=== PATIENT | female | born 1995 | race Caucasian/White ===

== ENCOUNTER → 2016-07-21 | Outpatient (CLI) | payer BC, OTHER | END | disposition home or self-care (01) | LOC: MW.CHOBGYN 13:32 | PROVIDERS: ATTEND Obstetrics & Gynecology | DX: Z34.90 Encounter for supervision of normal pregnancy, unspecified, unspecified trimester (principal); N92.6 Irregular menstruation, unspecified | CPT/HCPCS: 81003; 81025; 87480; 87491; 87510; 87591; 87660 ==

== ENCOUNTER → 2016-08-18 | Outpatient (CLI) | payer BC, OTHER | LOC: MW.CHOBGYN 11:13 | PROVIDERS: ATTEND Obstetrics & Gynecology | DX: Z34.90 Encounter for supervision of normal pregnancy, unspecified, unspecified trimester (principal) | CPT/HCPCS: 36415; 81003; 85027; 86592; 86762; 86803; 86850; 86900; 86901; 87086; 87340 ==

== ENCOUNTER 2017-01-28 05:11 | Inpatient (IN) | payer OTHER ==
[~2017-01-28 05:11] MED LIST: Citric Acid/Sodium Citrate Solution 30 ML Cup PO SCH; Oxytocin/0.9 % Sodium Chloride 30 UNIT/500 ML BAG IV SCH; Sodium Chloride 0.9% 10 ML Syringe FLUSH PRN; Sodium Chloride 0.9% 2.5 ML Syringe FLUSH PRN
[2017-01-28] MEDS: Lactated Ringers 1,000 ML IV SCH ×4 (05:50→18:13)
[2017-01-28] MEDS ORDERED: Ondansetron 4 MG/2 ML SDV ONE (06:59)
[2017-01-28] MEDS ORDERED: Oxytocin 10 Units/1 ML SDV ONE (06:59)
[2017-01-28] MEDS ORDERED: Morphine PF 10 MG/10 ML SDV ONE (06:59)
[2017-01-28] MEDS ORDERED: Phenylephrine 1% 10 MG/ML SDV ONE (06:59)
--- NOTE | 2017-01-28 07:26 | PCM.PREANE ---
Preanesthetic Assessment - Procedure Proposed Procedure: - Anesthesia/Transfusion/Family Hx Anesthesia History: Prior Anesthesia Without Reaction Family History of Anesthesia Reaction: No Transfusion History: No Prior Transfusion(s) Additional History: E in 2016 under spinal. - Review of Systems General: Other (, term) Pulmonary: Other (recent mild cold with cough...not today) Cardiovascular: No Symptoms Gastrointestinal: Other (GERD of , mild compared to priors) Neurological: No Symptoms Other: Reports: None - Physical Assessment NPO Status Date: 01/27/17 NPO Status Time: 23:00 Height: 5 ft Weight: 198 lb ASA Class: 2 Mental Status: Alert & Oriented x3 Airway Class: Mallampati = 2 Dentition: Reports: Normal Dentition Thyro-Mental Finger Breadths: 3 Mouth Opening Finger Breadths: 3 ROM/Head Extension: Full Lungs: Clear to Auscultation, Normal Respiratory Effort Cardiovascular: Regular Rate, Regular Rhythm, No Murmurs - Lab Values: Laboratory Last Values WBC 9.10 K/uL (4.0-11.0) 01/27/17 09:44 RBC 3.97 M/uL (4.30-5.90) L 01/27/17 09:44 Hgb 11.1 g/dL (12.0-16.0) L 01/27/17 09:44 Hct 33.4 % (36.0-46.0) L 01/27/17 09:44 MCV 84.1 fL (80.0-98.0) 01/27/17 09:44 MCH 28.0 pg (27.0-32.0) 01/27/17 09:44 MCHC 33.2 g/dL (31.0-37.0) 01/27/17 09:44 RDW Std Deviation 42.7 fl (28.0-62.0) 01/27/17 09:44 RDW Coeff of Fozia 14 % (11.0-15.0) 01/27/17 09:44 Plt Count 165 K/uL (150-400) 01/27/17 09:44 MPV 11.50 fL (7.40-12.00) 01/27/17 09:44 Neut % (Auto) 65.3 % (48.0-80.0) 01/27/17 09:44 Lymph % (Auto) 27.1 % (16.0-40.0) 01/27/17 09:44 [place] % (Auto) 6.4 % (0.0-15.0) 01/27/17 09:44 Eos % (Auto) 1.1 % (0.0-7.0) 01/27/17 09:44 Baso % (Auto) 0.1 % (0.0-1.5) 01/27/17 09:44 Neut # (Auto) 5.9 K/uL (1.4-5.7) H 01/27/17 09:44 Lymph # (Auto) 2.5 K/uL (0.6-2.4) H 01/27/17 09:44 [place] # (Auto) 0.6 K/uL (0.0-0.8) 01/27/17 09:44 Eos # (Auto) 0.1 K/uL (0.0-0.7) 01/27/17 09:44 Baso # (Auto) 0.0 K/uL (0.0-0.1) 01/27/17 09:44 Nucleated RBC % 0.0 /100WBC 01/27/17 09:44 Nucleated RBCs # 0 K/uL 01/27/17 09:44 Urine Color YELLOW 01/27/17 09:44 Urine Appearance CLEAR 01/27/17 09:44 Urine pH 6.5 (5.0-8.0) 01/27/17 09:44 Ur Specific [place] 1.020 (1.001-1.035) 01/27/17 09:44 Urine Protein NEGATIVE mg/dL (NEGATIVE) 01/27/17 09:44 Urine Glucose (UA) NEGATIVE mg/dL (NEGATIVE) 01/27/17 09:44 Urine Ketones NEGATIVE mg/dL (NEGATIVE) 01/27/17 09:44 Urine Occult Blood NEGATIVE (NEGATIVE) 01/27/17 09:44 Urine Nitrite NEGATIVE (NEGATIVE) 01/27/17 09:44 Urine Bilirubin NEGATIVE (NEGATIVE) 01/27/17 09:44 Urine Urobilinogen 0.2 EU/dL (<2.0) 01/27/17 09:44 Ur Leukocyte Esterase NEGATIVE (NEGATIVE) 01/27/17 09:44 Blood Type O POSITIVE 01/27/17 09:44 Antibody Screen NEGATIVE 01/27/17 09:44 - Allergies Allergies/Adverse Reactions: Allergies Allergy/AdvReac Type Severity Reaction Status Date / Time No Known Allergies Allergy Verified 01/28/17 06:02 - Blood Blood Available: Yes - Anesthesia Plan Pre-Op Medication Ordered: Antacids - Acknowledgements Anesthesia Type Planned: Spinal Pt an Appropriate Candidate for the Planned Anesthesia: Yes Alternatives and Risks of Anesthesia Discussed w Pt/Guardian: Yes Pt/Guardian Understands and Agrees with Anesthesia Plan: Yes PreAnesthesia Questionnaire HEENT History: Reports: None Cardiovascular History: Reports: None Respiratory History: Reports: None Gastrointestinal History: Reports: None Genitourinary History: Reports: None 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: Musculoskeletal History: Reports: None Neurological History: Reports: None Psychiatric History: Reports: None Endocrine/Metabolic History: Reports: Obesity/BMI 30+ Hematologic History: Reports: None Immunologic History: Reports: None Oncologic (Cancer) History: Reports: None Dermatologic History: Reports: None - Past Surgical History Female Surgical History: Reports: Section Endocrine Surgical History: Reports: None Musculoskeletal Surgical History: Reports: Other (See Below) Other Musculoskeletal Surgeries/Procedures:: cyst removed from wrist - SUBSTANCE USE Smoking Status *Q: Former Smoker Second Hand Smoke Exposure: No Recreational Drug Use History: No - HOME MEDS Home Medications: Home Meds PNV95/Ferrous Fumarate/FA [ Multivitamins] 1 tab PO DAILY 08/21/14 [ History] - CURRENT (IN HOUSE) MEDS Current Meds: Current Medications Citric Acid/Sodium Citrate (Bicitra Solution) 30 ml PO .ONCE MICHELLE Lactated Ringer's (Ringers, Lactated) 1,000 mls @ 500 mls/hr IV .BOLUS MICHELLE Last Admin: 01/28/17 06:30 Dose: 500 mls/hr Oxytocin/Sodium Chloride (Oxytocin 30 Unit/500 Ml-Ns) 30 unit in 500 mls @ 250 mls/hr IV TITRATE MICHELLE Sodium Chloride (Saline Flush) 10 ml FLUSH ASDIRECTED PRN PRN Reason: Keep Vein Open Sodium Chloride (Saline Flush) 2.5 ml FLUSH ASDIRECTED PRN PRN Reason: Keep Vein Open Discontinued Medications Morphine Sulfate (Duramorph Pf) Confirm Administered Dose 10 mg .ROUTE .STK-MED ONE Stop: 01/28/17 07:00 Ondansetron HCl (Zofran) Confirm Administered Dose 4 mg .ROUTE .STK-MED ONE Stop: 01/28/17 07:00 Oxytocin (Pitocin) Confirm Administered Dose 20 unit .ROUTE .STK-MED ONE Stop: 01/28/17 07:00 Phenylephrine HCl (Rodriguez-Synephrine) Confirm Administered Dose 10 mg .ROUTE .STK- MED ONE Stop: 01/28/17 07:00
[2017-01-28] MEDS ORDERED: ceFAZolin 2 GM in Premix Bag 1 BAG IV ONE (07:39)
--- NOTE | 2017-01-28 08:02 | PCM.LDHP ---
L&D History of Present Illness - General Date of Service: 01/28/17 Admit Problem/Dx: Patient Status Order with Admit Dx/Problem 01/27/17 13:41 Patient Status [ADT] Routine Admission Diagnosis/Problem Admission Diagnosis/Problem Source of Information: Patient History Limitations: Reports: No Limitations - History of Present Illness Improves with: Reports: None Worsens with: Reports: None Associated Symptoms: Reports: N - Related Data Allergies/Adverse Reactions: Allergies Allergy/AdvReac Type Severity Reaction Status Date / Time No Known Allergies Allergy Verified 01/28/17 06:02 Home Medications: Home Meds PNV95/Ferrous Fumarate/FA [ Multivitamins] 1 tab PO DAILY 08/21/14 [ History] Past Medical History HEENT History: Reports: None Cardiovascular History: Reports: None Respiratory History: Reports: None Gastrointestinal History: Reports: None Genitourinary History: Reports: None 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: Musculoskeletal History: Reports: None Neurological History: Reports: None Psychiatric History: Reports: None Endocrine/Metabolic History: Reports: Obesity/BMI 30+ Hematologic History: Reports: None Immunologic History: Reports: None Oncologic (Cancer) History: Reports: None Dermatologic History: Reports: None - Past Surgical History Female Surgical History: Reports: Section Endocrine Surgical History: Reports: None Musculoskeletal Surgical History: Reports: Other (See Below) Other Musculoskeletal Surgeries/Procedures:: cyst removed from wrist Social & Family History - Family History Cardiac: Reports: [place] OBGYN: Reports: Endocrine/Metabolic: Reports: Diabetes, Type I - Tobacco Use Smoking Status *Q: Former Smoker Years of Tobacco use: 2 Used Tobacco, but Quit: Yes Month Tobacco Last Used: unknown Second Hand Smoke Exposure: No - Caffeine Use Caffeine Use: Reports: None - Recreational Drug Use Recreational Drug Use: No Drug Use in Last 12 Months: No H&P Review of Systems - Review of Systems: Review Of Systems: See Below General: Reports: No Symptoms HEENT: Reports: No Symptoms Pulmonary: Reports: No Symptoms Cardiovascular: Reports: No Symptoms Gastrointestinal: Reports: No Symptoms Genitourinary: Reports: No Symptoms Musculoskeletal: Reports: No Symptoms Skin: Reports: No Symptoms Psychiatric: Reports: No Symptoms Neurological: Reports: No Symptoms Hematologic/Lymphatic: Reports: No Symptoms Immunologic: Reports: No Symptoms L&D Exam - Exam Exam: See Below - Vital Signs Weight: 89.811 kg - OB Specific Fundal Height In cm: 39 Contraction Intensity: Mild Movement: Active Heart Tones: Present Presentation: Vertex - Jessica Score Jessica Score Cervix Position: Posterior Jessica Score Consistency: Medium Jessica Score Effacement: 31-50% Jessica Score Dilation: Closed Jessica Score 's Station: -3 Jessica Score Total: 2 - Exam General: Alert, Oriented HEENT: PERRLA, Conjunctiva Clear, EACs Clear, EOMI, Hearing Intact, Mucosa Moist & [place], Nares Patent, Normal Nasal Septum, Posterior Pharynx Clear, TMs Clear Neck: Supple, Trachea Midline Lungs: Clear to Auscultation, Normal Respiratory Effort Cardiovascular: Regular Rate, Regular Rhythm GI/Abdominal Exam: Normal Bowel Sounds, Soft, Non-Tender, No Organomegaly, No Distention, No Abnormal Bruit, No Mass, Pelvis Stable Rectal Exam: Normal Exam, Normal Rectal Tone Genitourinary: Normal external exam, Normal bimanual exam, Normal speculum exam Back Exam: Normal Inspection, Full Range of Motion Extremities: Normal Inspection, Normal Range of Motion, Non-Tender, No Pedal Edema, Normal Capillary Refill Skin: Warm, Dry, Intact Neurological: Cranial Nerves Intact, Reflexes Equal Bilateral Psychiatric: Alert, Normal Affect, Normal Mood - Patient Data Lab Results Last 24 hrs: Laboratory Results - last 24 hr 01/27/17 01/27/17 01/27/17 Range/Units 09:44 09:44 09:44 WBC 9.10 (4.0-11.0) K/uL RBC 3.97 L (4.30-5.90) M/uL Hgb 11.1 L (12.0-16.0) g/dL Hct 33.4 L (36.0-46.0) % MCV 84.1 (80.0-98.0) fL MCH 28.0 (27.0-32.0) pg MCHC 33.2 (31.0-37.0) g/dL RDW Std Deviation 42.7 (28.0-62.0) fl RDW Coeff of Fozia 14 (11.0-15.0) % Plt Count 165 (150-400) K/uL MPV 11.50 (7.40-12.00) fL Neut % (Auto) 65.3 (48.0-80.0) % Lymph % (Auto) 27.1 (16.0-40.0) % [place] % (Auto) 6.4 (0.0-15.0) % Eos % (Auto) 1.1 (0.0-7.0) % Baso % (Auto) 0.1 (0.0-1.5) % Neut # (Auto) 5.9 H (1.4-5.7) K/uL Lymph # (Auto) 2.5 H (0.6-2.4) K/uL [place] # (Auto) 0.6 (0.0-0.8) K/uL Eos # (Auto) 0.1 (0.0-0.7) K/uL Baso # (Auto) 0.0 (0.0-0.1) K/uL Nucleated RBC % 0.0 /100WBC Nucleated RBCs # 0 K/uL Urine Color YELLOW Urine Appearance CLEAR Urine pH 6.5 (5.0-8.0) Ur Specific [place] 1.020 (1.001-1.035) Urine Protein NEGATIVE (NEGATIVE) mg/dL Urine Glucose (UA) NEGATIVE (NEGATIVE) mg/dL Urine Ketones NEGATIVE (NEGATIVE) mg/dL Urine Occult Blood NEGATIVE (NEGATIVE) Urine Nitrite NEGATIVE (NEGATIVE) Urine Bilirubin NEGATIVE (NEGATIVE) Urine Urobilinogen 0.2 (<2.0) EU/dL Ur Leukocyte Esterase NEGATIVE (NEGATIVE) Blood Type O POSITIVE Antibody Screen NEGATIVE Result Diagrams: 01/27/17 09:44 Problem List Initiated/Reviewed/Updated: Yes Orders Last 24hrs: Active Orders 24 hr Category Date Time Status Patient Status [ADT] Routine ADT 01/27/17 13:41 Active Non Stress Test [RC] PER UNIT ROUTINE Care 01/27/17 13:41 Active Procedure Site Prep Instruct [RC] ASDIRECTED Care 01/27/17 13:41 Active Up ad Katherine [RC] ASDIRECTED Care 01/27/17 13:41 Active Vital Signs [RC] PER UNIT ROUTINE Care 01/27/17 13:41 Active Citric Acid/Sodium Citrate [Bicitra Solution] Med 01/27/17 13:45 Active 30 ml PO .ONCE Lactated Ringers [Ringers, Lactated] 1,000 ml Med 01/27/17 13:45 Active IV .BOLUS Oxytocin/0.9 % Sodium Chloride [Oxytocin 30 Unit/500 ML Med 01/27/17 13:45 Active -NS] 30 unit in 500 ml IV TITRATE Sodium Chloride 0.9% [Saline Flush] Med 01/27/17 13:41 Active 10 ml FLUSH ASDIRECTED PRN Sodium Chloride 0.9% [Saline Flush] Med 01/27/17 13:41 Active 2.5 ml FLUSH ASDIRECTED PRN ceFAZolin [Ancef] 2 gm Med 01/28/17 07:39 Active Premix Bag 1 bag IV ONETIME Peripheral IV Insertion Adult [OM.PC] Routine Oth 01/27/17 13:41 Ordered Schedule Procedure [COMM] Per Unit Routine Oth 01/27/17 13:41 Ordered Resuscitation Status Routine Resus Stat 01/27/17 13:41 Ordered Medication Orders Citric Acid/Sodium Citrate (Bicitra Solution) 30 ml PO .ONCE MICHELLE Lactated Ringer's (Ringers, Lactated) 1,000 mls @ 500 mls/hr IV .BOLUS MICHELLE Last Admin: 01/28/17 06:30 Dose: 500 mls/hr Infusion: 01/28/17 06:30 Dose: 500 mls/hr Admin: 01/28/17 05:50 Dose: 500 mls/hr Oxytocin/Sodium Chloride (Oxytocin 30 Unit/500 Ml-Ns) 30 unit in 500 mls @ 250 mls/hr IV TITRATE MICHELLE Cefazolin Sodium/Dextrose 2 gm (/ Premix) 50 mls @ 100 mls/hr IV ONETIME ONE Stop: 01/28/17 08:08 Sodium Chloride (Saline Flush) 10 ml FLUSH ASDIRECTED PRN PRN Reason: Keep Vein Open Sodium Chloride (Saline Flush) 2.5 ml FLUSH ASDIRECTED PRN PRN Reason: Keep Vein Open Assessment/Plan Comment:: Term admitted for elective repeat C/Sectiom
[2017-01-28] MEDS ORDERED: Octyl 2-Cyanoacrylate 1 Tube ONE (08:36)
[2017-01-28] MEDS ORDERED: Bisacodyl 10 MG Supp RECTAL PRN (08:46)
[2017-01-28] MEDS ORDERED: Ondansetron 4 MG/2 ML SDV IV PRN (08:46)
[2017-01-28] MEDS ORDERED: Acetaminophen/oxyCODONE 325-5 MG Tab PO PRN ×2 (08:46)
[2017-01-28] MEDS ORDERED: diphenhydrAMINE 50 MG/ML SDV IVPUSH PRN (08:46)
[2017-01-28] MEDS ORDERED: Lanolin 100% Cream 7 GM Tube TOP PRN (08:46)
--- NOTE | 2017-01-28 08:50 | PCM.OPNOTE ---
- General Post-Op/Procedure Note Date of Surgery/Procedure: 01/28/17 Operative Procedure(s): Repeat C/Section Pre Op Diagnosis: IUP 302 previous C/Section X2 Post-Op Diagnosis: Same Anesthesia Technique: Spinal Primary Surgeon: Max Felton Leather Stripping Machine Operator: Liz Fan EBL in mLs: 600 Complications: None Condition: Good
--- NOTE | 2017-01-28 09:29 | OR ---
SURGEON: Max Felton MD DATE OF PROCEDURE: PREOPERATIVE DIAGNOSES: Intrauterine 39 plus 2, previous section x2. POSTOPERATIVE DIAGNOSIS: Intrauterine 39 plus 2, previous section x2. OPERATION PERFORMED: Repeat low transverse section. ELECTROMECHANICAL INSPECTOR: Liz Fan. ANESTHESIA: Spinal, Nicko Murrell and Randall Jerome MD ESTIMATED BLOOD LOSS: 600 mL. COMPLICATIONS: None. FINDINGS: A female fetus. score reported to be 8 and 9. Weight is not available. Normal uterus, tubes, and ovaries. INDICATION FOR SURGERY: This patient is term. She is 39 plus 2 weeks. She is followed in our clinic without complication. She has 2 previous section. She is admitted for elective repeat section. PROCEDURE IN DETAIL: The patient was brought to the OR, properly identified and after adequate level of spinal anesthesia with a Gee catheter in the bladder, the patient prepped and draped in sterile fashion as usual. Time-out was taken at this time and after that we proceeded with a surgery. Low transverse Pfannenstiel skin incision done through the old scar. The Mikayla fascia and rectus fascia were opened in direction of the incision. The 2 recti muscles were and the peritoneal cavity was entered. The lower uterine segment was fairly thin and a low transverse uterine incision was done and extended manually with hand. Fetus was in a vertex position and delivered without any problem, cried immediately. score reported to be later on 8 and 9. The weight was not available. The placenta delivered spontaneous, complete and intact and repair of the lower uterine segment was done with 2-0 Vicryl continuous interlocking in 2 layers. Reperitonealization of the lower uterine segment was done with 3-0 Vicryl continuous and then the peritoneal cavity evacuated completely from all blood and blood clot and closed with 3-0 Vicryl continuous. The rectus fascia was closed with a #1 double-stranded PDS continuous and the Mikayla fascia with 3-0 Vicryl continuous. The skin was closed with 3-0 Vicryl on a Myron needle and Dermabond. Instrument and sponge count were correct. The patient tolerated the procedure well, went to recovery room in stable general condition. MANDEEP / TEDDY /[id number]
[2017-01-28] MEDS ORDERED: Naloxone 0.4 MG/ML Syringe IVPUSH PRN (09:38)
[2017-01-28] MEDS ORDERED: Nalbuphine 10 MG/1 ML Vial IVPUSH PRN (09:38)
[2017-01-28] MEDS: Ketorolac 30 MG/ML SDV IVPUSH SCH ×3 (09:39→21:36)
--- NOTE | 2017-01-28 09:41 | PCM.POSTAN ---
POST ANESTHESIA ASSESSMENT - MENTAL STATUS Mental Status: Alert (Neuroaxis prophylactic orders written), Oriented - RESPIRATORY Respiratory Status: Respiratory Rate WNL, Airway Patent, O2 Saturation Stable - CARDIOVASCULAR CV Status: Pulse Rate WNL, Blood Pressure Stable - GASTROINTESTINAL GI Status: No Symptoms - PAIN Pain Score: 0 (spinal still active) - POST OP HYDRATION Hydration Status: Adequate & Stable
--- NOTE | 2017-01-28 14:25 | PCM48HPAN ---
Post Anesthesia Note - EVALUATION WITHIN 48HRS OF ANESTHETIC Vital Signs in Normal Range: Yes Patient Participated in Evaluation: Yes Respiratory Function Stable: Yes Airway Patent: Yes Cardiovascular Function Stable: Yes Hydration Status Stable: Yes Pain Control Satisfactory: Yes Nausea and Vomiting Control Satisfactory: Yes Mental Status Recovered: Yes - COMMENTS/OBSERVATIONS Free Text/Narrative:: some pruritus on face
[2017-01-28] MEDS: Docusate Sodium 100 MG Cap PO SCH (21:35)
[2017-01-29] MEDS: Docusate Sodium 100 MG Cap PO SCH ×3 (00:34→20:47)
[2017-01-29] MEDS: Lactated Ringers 1,000 ML IV SCH (01:35)
[2017-01-29] MEDS: Ketorolac 30 MG/ML SDV IVPUSH SCH ×2 (03:47→08:59)
--- NOTE | 2017-01-29 08:44 | PCM.PNPP ---
- General Info Date of Service: 01/29/17 Functional Status: Reports: Pain Controlled - Review of Systems General: Reports: No Symptoms HEENT: Reports: No Symptoms Pulmonary: Reports: No Symptoms Cardiovascular: Reports: No Symptoms Gastrointestinal: Reports: No Symptoms Genitourinary: Reports: No Symptoms Musculoskeletal: Reports: No Symptoms Skin: Reports: No Symptoms Neurological: Reports: No Symptoms Psychiatric: Reports: No Symptoms - General Info Date of Service: 01/29/17 - Patient Data Vital Signs - Most Recent: Last Vital Signs Temp 36.4 C 01/29/17 04:00 Pulse 93 01/29/17 07:00 Resp 16 01/29/17 07:00 BP 103/58 L 01/28/17 20:00 Pulse Ox 93 L 01/29/17 07:00 Weight - Most Recent: 89.811 kg I&O - Last 24 Hours: Intake & Output 01/28/17 01/29/17 01/29/17 22:59 06:59 14:59 Intake Total 1600 438 Output Total 255 475 Balance 1345 -37 Lab Results - Last 24 Hours: Laboratory Results - last 24 hr 01/29/17 Range/Units 05:38 Hgb 8.8 L (12.0-16.0) g/dL Hct 27.5 L (36.0-46.0) % Med Orders - Current: Current Medications Bisacodyl (Dulcolax) 10 mg RECTAL .ONCE PRN PRN Reason: Constipation Citric Acid/Sodium Citrate (Bicitra Solution) 30 ml PO .ONCE [facility] Last Admin: 01/28/17 08:05 Dose: 15 ml Diphenhydramine HCl (Benadryl) 25 mg IVPUSH Q6H PRN PRN Reason: Itching or Nausea Docusate Sodium (Colace) 100 mg PO BID [facility] Last Admin: 01/29/17 00:34 Dose: Not Given Emollient Ointment (Lansinoh Hpa) 0 gm TOP ASDIRECTED PRN PRN Reason: Sore Nipples Lactated Ringer's (Ringers, Lactated) 1,000 mls @ 500 mls/hr IV .BOLUS [facility] Last Admin: 01/28/17 06:30 Dose: 500 mls/hr Oxytocin/Sodium Chloride (Oxytocin 30 Unit/500 Ml-Ns) 30 unit in 500 mls @ 250 mls/hr IV TITRATE [facility] Lactated Ringer's (Ringers, Lactated) 1,000 mls @ 125 mls/hr IV ASDIRECTED [facility] Last Admin: 01/29/17 01:35 Dose: 125 mls/hr Ibuprofen (Motrin) 800 mg PO Q8H PRN PRN Reason: mild pain or fever Ketorolac Tromethamine (Toradol) 30 mg IVPUSH Q6H [facility] Stop: 01/29/17 09:01 Last Admin: 01/29/17 03:47 Dose: 30 mg Nalbuphine HCl (Nubain) 5 mg IVPUSH Q3H PRN PRN Reason: Pruritis Stop: 01/29/17 09:39 Naloxone HCl (Narcan) 0.1 mg IVPUSH ONETIME PRN PRN Reason: Respiratory Depression Stop: 01/29/17 09:39 Ondansetron HCl (Zofran) 4 mg IV Q4H PRN PRN Reason: Nausea/Vomiting Oxycodone/Acetaminophen (Percocet 325-5 Mg) 1 tab PO Q4H PRN PRN Reason: Pain (moderate 4-6) Oxycodone/Acetaminophen (Percocet 325-5 Mg) 2 tab PO Q4H PRN PRN Reason: Pain (moderate 4-6) Sodium Chloride (Saline Flush) 10 ml FLUSH ASDIRECTED PRN PRN Reason: Keep Vein Open Sodium Chloride (Saline Flush) 2.5 ml FLUSH ASDIRECTED PRN PRN Reason: Keep Vein Open Discontinued Medications Cefazolin Sodium/Dextrose 2 gm (/ Premix) 50 mls @ 100 mls/hr IV ONETIME ONE Stop: 01/28/17 08:08 Last Admin: 01/29/17 00:33 Dose: Not Given Morphine Sulfate (Duramorph Pf) Confirm Administered Dose 10 mg .ROUTE .STK-MED ONE Stop: 01/28/17 07:00 Octyl Cyanoacrylate (Dermabond Advance) Confirm Administered Dose 1 applic .ROUTE .STK-MED ONE Stop: 01/28/17 08:37 Ondansetron HCl (Zofran) Confirm Administered Dose 4 mg .ROUTE .STK-MED ONE Stop: 01/28/17 07:00 Oxytocin (Pitocin) Confirm Administered Dose 20 unit .ROUTE .STK-MED ONE Stop: 01/28/17 07:00 Phenylephrine HCl (Rodriguez-Synephrine) Confirm Administered Dose 10 mg .ROUTE .STK- MED ONE Stop: 01/28/17 07:00 - Infant Interaction Infant Disposition, : [place] in Room with Family Interaction: Holding Infant Feeding: Attempted ; Nursed Fair/Poor Support Person: - Recovery Exam Fundal Tone: Firm Fundal Level: 1 Fingerbreadths Below Umbilicus Fundal Placement: Midline Lochia Amount: Scant Lochia Color: Rubra/Red Perineum Description: Intact, Minimal Bruising/Swelling Episiotomy/Laceration: None Bladder Status: Indwelling Catheter in Place Urinary Elimination: Indwelling Catheter - Exam General: Alert, Oriented HEENT: Pupils Equal Neck: Supple Lungs: Clear to Auscultation, Normal Respiratory Effort Cardiovascular: Regular Rate, Regular Rhythm GI/Abdominal Exam: Normal Bowel Sounds, Soft, Non-Tender, No Organomegaly, No Distention, No Abnormal Bruit, No Mass, Pelvis Stable Extremities: Normal Inspection, Normal Range of Motion, Non-Tender, No Pedal Edema, Normal Capillary Refill Skin: Warm, Dry, Intact Wound/Incisions: Healing Well Neurological: No New Focal Deficit Psy/Mental Status: Alert, Normal Affect, Normal Mood - Problem List Review Problem List Initiated/Reviewed/Updated: Yes - My Orders Last 24 Hours: My Active Orders 01/28/17 08:46 Patient Status [ADT] Routine Ambulate [RC] PER UNIT ROUTINE Antiembolic Devices [RC] PER UNIT ROUTINE Communication Order [RC] PER UNIT ROUTINE Communication Order [RC] PER UNIT ROUTINE Communication Order [RC] Per Unit Routine May Shower [RC] ASDIRECTED RT Incentive Spirometry [RC] Q2HWA Vital Signs [RC] PER UNIT ROUTINE Acetaminophen/oxyCODONE [Percocet 325-5 MG] 1 tab PO Q4H PRN Acetaminophen/oxyCODONE [Percocet 325-5 MG] 2 tab PO Q4H PRN Bisacodyl [Dulcolax] 10 mg RECTAL .ONCE PRN Ibuprofen [Motrin] 800 mg PO Q8H PRN Lanolin [Lansinoh HPA] See Dose Instructions TOP ASDIRECTED PRN Ondansetron [Zofran] 4 mg IV Q4H PRN diphenhydrAMINE [Benadryl] 25 mg IVPUSH Q6H PRN Assess Lochia [WOMSER] Per Unit Routine Assess Uterine Involution [WOMSER] Per Unit Routine Breast Pump [WOMSER] Per Unit Routine Peripheral IV Discontinue [OM.PC] Routine Sequential Compression Device [OM.PC] Per Unit Routine 01/28/17 09:00 Docusate Sodium [Colace] 100 mg PO BID Ketorolac [Toradol] 30 mg IVPUSH Q6H Lactated Ringers [Ringers, Lactated] 1,000 ml IV ASDIRECTED 01/28/17 Lunch Regular Diet [DIET] - Assessment Assessment:: Status post section postoperative day #1 the patient is doing well - Plan Plan:: Term admitted for elective repeat C/Sectiom
[2017-01-29] MEDS: Ibuprofen 800 MG Tab PO PRN (14:38)
[2017-01-30] MEDS: Ibuprofen 800 MG Tab PO PRN ×2 (06:44→12:34)
--- NOTE | 2017-01-30 09:21 | PCM.DCSUM1 ---
Discharge Summary - Discharge Data Discharge Date: 01/30/17 Discharge Disposition: Home, Self-Care 01 Condition: Good - Patient Summary/Data Operative Procedure(s) Performed: Repeat C/Section - Patient Instructions Diet: Usual Diet as Tolerated Activity: As Tolerated Driving: Do Not Drive Showering/Bathing: May Shower Wound/Incision Care: Keep Operative Site/Wound Site Clean and Dry Notify Provider of: Fever, Increased Pain, Nausea and/or Vomiting - Discharge Plan Home Medications: Home Meds PNV95/Ferrous Fumarate/FA [ Multivitamins] 1 tab PO DAILY 08/21/14 [ History] Patient Handouts: Delivery, Care After Referrals: [facility] [Outside] Max Felton MD [Physician] - (2 week- February 05 @ 3:30pm w/ Dr. Felton week- March 08 @ 1:30pm w/ Dr. Felton ) - General Info Date of Service: 01/30/17 Functional Status: Reports: Pain Controlled - Review of Systems General: Reports: No Symptoms HEENT: Reports: No Symptoms Pulmonary: Reports: No Symptoms Cardiovascular: Reports: No Symptoms Gastrointestinal: Reports: No Symptoms Genitourinary: Reports: No Symptoms Musculoskeletal: Reports: No Symptoms Skin: Reports: No Symptoms Neurological: Reports: No Symptoms Psychiatric: Reports: No Symptoms - Patient Data Vitals - Most Recent: Last Vital Signs Temp 37.3 C 01/30/17 05:07 Pulse 106 H 01/30/17 08:20 Resp 18 01/30/17 08:20 BP 134/84 01/30/17 08:20 Pulse Ox 96 01/30/17 05:07 Weight - Most Recent: 89.811 kg Med Orders - Current: Current Medications Bisacodyl (Dulcolax) 10 mg RECTAL .ONCE PRN PRN Reason: Constipation Citric Acid/Sodium Citrate (Bicitra Solution) 30 ml PO .ONCE MICHELLE Last Admin: 01/28/17 08:05 Dose: 15 ml Diphenhydramine HCl (Benadryl) 25 mg IVPUSH Q6H PRN PRN Reason: Itching or Nausea Docusate Sodium (Colace) 100 mg PO BID MICHELLE Last Admin: 01/29/17 20:47 Dose: 100 mg Emollient Ointment (Lansinoh Hpa) 0 gm TOP ASDIRECTED PRN PRN Reason: Sore Nipples Lactated Ringer's (Ringers, Lactated) 1,000 mls @ 500 mls/hr IV .BOLUS [facility] Last Admin: 01/28/17 06:30 Dose: 500 mls/hr Oxytocin/Sodium Chloride (Oxytocin 30 Unit/500 Ml-Ns) 30 unit in 500 mls @ 250 mls/hr IV TITRATE [facility] Lactated Ringer's (Ringers, Lactated) 1,000 mls @ 125 mls/hr IV ASDIRECTED [facility] Last Admin: 01/29/17 01:35 Dose: 125 mls/hr Ibuprofen (Motrin) 800 mg PO Q8H PRN PRN Reason: mild pain or fever Last Admin: 01/30/17 06:44 Dose: 800 mg Ondansetron HCl (Zofran) 4 mg IV Q4H PRN PRN Reason: Nausea/Vomiting Oxycodone/Acetaminophen (Percocet 325-5 Mg) 1 tab PO Q4H PRN PRN Reason: Pain (moderate 4-6) Oxycodone/Acetaminophen (Percocet 325-5 Mg) 2 tab PO Q4H PRN PRN Reason: Pain (moderate 4-6) Last Admin: 01/29/17 20:48 Dose: 2 tab Sodium Chloride (Saline Flush) 10 ml FLUSH ASDIRECTED PRN PRN Reason: Keep Vein Open Sodium Chloride (Saline Flush) 2.5 ml FLUSH ASDIRECTED PRN PRN Reason: Keep Vein Open Discontinued Medications Cefazolin Sodium/Dextrose 2 gm (/ Premix) 50 mls @ 100 mls/hr IV ONETIME ONE Stop: 01/28/17 08:08 Last Admin: 01/29/17 00:33 Dose: Not Given Ketorolac Tromethamine (Toradol) 30 mg IVPUSH Q6H [facility] Stop: 01/29/17 09:01 Last Admin: 01/29/17 08:59 Dose: 30 mg Morphine Sulfate (Duramorph Pf) Confirm Administered Dose 10 mg .ROUTE .STK-MED ONE Stop: 01/28/17 07:00 Nalbuphine HCl (Nubain) 5 mg IVPUSH Q3H PRN PRN Reason: Pruritis Stop: 01/29/17 09:39 Naloxone HCl (Narcan) 0.1 mg IVPUSH ONETIME PRN PRN Reason: Respiratory Depression Stop: 01/29/17 09:39 Octyl Cyanoacrylate (Dermabond Advance) Confirm Administered Dose 1 applic .ROUTE .STK-MED ONE Stop: 01/28/17 08:37 Ondansetron HCl (Zofran) Confirm Administered Dose 4 mg .ROUTE .STK-MED ONE Stop: 01/28/17 07:00 Oxytocin (Pitocin) Confirm Administered Dose 20 unit .ROUTE .STK-MED ONE Stop: 01/28/17 07:00 Phenylephrine HCl (Rodriguez-Synephrine) Confirm Administered Dose 10 mg .ROUTE .STK- MED ONE Stop: 01/28/17 07:00 - Exam General: Reports: Alert, Oriented HEENT: Reports: Pupils Equal, Pupils Reactive, EOMI, Mucous Membr. Moist/[place] Neck: Reports: Supple Lungs: Reports: Clear to Auscultation, Normal Respiratory Effort Cardiovascular: Reports: Regular Rate, Regular Rhythm GI/Abdominal Exam: Normal Bowel Sounds, Soft, Non-Tender, No Organomegaly, No Distention, No Abnormal Bruit, No Mass, Pelvis Stable (Female) Exam: Normal External Exam, Normal Speculum Exam, Normal Bimanual Exam Rectal (Female) Exam: Normal Exam, Normal Rectal Tone Back Exam: Reports: Normal Inspection, Full Range of Motion Extremities: Normal Inspection, Normal Range of Motion, Non-Tender, No Pedal Edema, Normal Capillary Refill Skin: Reports: Warm, Dry, Intact Wound/Incisions: Reports: Healing Well Neurological: Reports: No New Focal Deficit Psy/Mental Status: Reports: Alert, Normal Affect, Normal Mood *Q Meaningful Use (DIS) - VTE *Q VTE Criteria *Q: - Stroke *Q Stroke Criteria *Q: - AMI *Q AMI Criteria *Q:
[2017-01-30] MEDS: Docusate Sodium 100 MG Cap PO SCH (12:32)
[2017-01-30 12:37] VITALS: BP 129/81
== END 2017-01-30 15:00 | disposition home or self-care (01) | DRG 766 ==
LOC: MW.OB 05:11
PROVIDERS: ADMIT Obstetrics & Gynecology; ATTEND Obstetrics & Gynecology
PROC: 10D00Z1 Extraction of Products of Conception, Low, Open Approach (ICD-10-PCS; principal; 2017-01-28)
DX: O34.211 Maternal care for low transverse scar from previous cesarean delivery (principal); Z37.0 Single live birth; Z3A.39 39 weeks gestation of pregnancy
CPT/HCPCS: 01961; 36415; 59025; 81003; 85014; 85018; 85025; 86850; 86900; 86901; A9270-GY; J1885; J2270; J2370; J2405; J2590; J7120

== ENCOUNTER 2018-10-28 11:51 | Inpatient (IN) | payer OTHER ==
[2018-10-28] MEDS ORDERED: Sodium Chloride 0.9% 2.5 ML Syringe FLUSH PRN (12:51)
[2018-10-28] MEDS ORDERED: Sodium Chloride 0.9% 10 ML Syringe FLUSH PRN (12:51)
[2018-10-28] MEDS ORDERED: Sodium Chloride 0.9% 10 ML SDV IV PRN (12:51)
[2018-10-28] MEDS ORDERED: Citric Acid/Sodium Citrate Solution 30 ML Cup PO ONE (12:51)
[2018-10-28] MEDS ORDERED: Oxytocin/0.9 % Sodium Chloride 30 UNIT/500 ML BAG IV SCH (13:00)
[2018-10-28] MEDS ORDERED: Lactated Ringers 1,000 ML IV SCH (13:00)
--- NOTE | 2018-10-28 14:00 | PCM.LDHP ---
L&D History of Present Illness - General Date of Service: 10/28/18 Admit Problem/Dx: Patient Status Order with Admit Dx/Problem 10/28/18 12:01 Patient Status [ADT] Routine 10/28/18 12:51 Patient Status [ADT] Routine Admission Diagnosis/Problem Admission Diagnosis/Problem Source of Information: Patient History Limitations: Reports: No Limitations - History of Present Illness Improves with: Reports: None Worsens with: Reports: None Associated Symptoms: Reports: N - Related Data Allergies/Adverse Reactions: Allergies Allergy/AdvReac Type Severity Reaction Status Date / Time No Known Allergies Allergy Verified 01/28/17 06:02 Home Medications: Home Meds PNV95/Ferrous Fumarate/FA [ Multivitamins] 1 tab PO DAILY 08/21/14 [ History] Past Medical History HEENT History: Reports: None Cardiovascular History: Reports: None Respiratory History: Reports: None Gastrointestinal History: Reports: None Genitourinary History: Reports: None CORRECTIVE THERAPIST History: Reports: Other OB/BYN History: c/s x 3 Musculoskeletal History: Reports: None Neurological History: Reports: None Psychiatric History: Reports: None Endocrine/Metabolic History: Reports: Obesity/BMI 30+ Hematologic History: Reports: None Immunologic History: Reports: None Oncologic (Cancer) History: Reports: None Dermatologic History: Reports: None - Past Surgical History Head Surgeries/Procedures: Reports: None Female Surgical History: Reports: Section Endocrine Surgical History: Reports: None Musculoskeletal Surgical History: Reports: Other (See Below) Other Musculoskeletal Surgeries/Procedures:: cyst removed from wrist Social & Family History - Family History Cardiac: Reports: [place] OBGYN: Reports: Endocrine/Metabolic: Reports: Diabetes, type II - Tobacco Use Smoking Status *Q: Never Smoker - Caffeine Use Caffeine Use: Reports: Coffee - Recreational Drug Use Recreational Drug Use: No H&P Review of Systems - Review of Systems: Review Of Systems: See Below General: Reports: No Symptoms HEENT: Reports: No Symptoms Pulmonary: Reports: No Symptoms Cardiovascular: Reports: No Symptoms Gastrointestinal: Reports: No Symptoms Genitourinary: Reports: No Symptoms Musculoskeletal: Reports: No Symptoms Skin: Reports: No Symptoms Psychiatric: Reports: No Symptoms Neurological: Reports: No Symptoms Hematologic/Lymphatic: Reports: No Symptoms Immunologic: Reports: No Symptoms L&D Exam - Exam Exam: See Below - Vital Signs Weight: 90.265 kg - OB Specific Contraction Intensity: Mild Movement: Active Heart Tones: Present Presentation: Vertex - Exam General: Alert, Oriented HEENT: PERRLA, Conjunctiva Clear, EACs Clear, EOMI, Hearing Intact, Mucosa Moist & [place], Nares Patent, Normal Nasal Septum, Posterior Pharynx Clear, TMs Clear Neck: Supple, Trachea Midline Lungs: Clear to Auscultation, Normal Respiratory Effort Cardiovascular: Regular Rate, Regular Rhythm GI/Abdominal Exam: Normal Bowel Sounds, Soft, Non-Tender, No Organomegaly, No Distention, No Abnormal Bruit, No Mass, Pelvis Stable Rectal Exam: Normal Exam, Normal Rectal Tone Genitourinary: Normal external exam, Normal bimanual exam, Normal speculum exam Back Exam: Normal Inspection, Full Range of Motion Extremities: Normal Inspection, Normal Range of Motion, Non-Tender, No Pedal Edema, Normal Capillary Refill Skin: Warm, Dry, Intact Neurological: Cranial Nerves Intact, Reflexes Equal Bilateral Psychiatric: Alert, Normal Affect, Normal Mood - Patient Data Lab Results Last 24 hrs: Laboratory Results - last 24 hr 10/28/18 10/28/18 Range/Units 11:55 13:07 WBC 9.28 (4.0-11.0) K/uL RBC 4.25 L (4.30-5.90) M/uL Hgb 11.4 L (12.0-16.0) g/dL Hct 35.3 L (36.0-46.0) % MCV 83.1 (80.0-98.0) fL MCH 26.8 L (27.0-32.0) pg MCHC 32.3 (31.0-37.0) g/dL RDW Std Deviation 45.4 (28.0-62.0) fl RDW Coeff of Fozia 15 (11.0-15.0) % Plt Count 179 (150-400) K/uL MPV 11.20 (7.40-12.00) fL Nucleated RBC % 0.0 /100WBC Nucleated RBCs # 0 K/uL Membrane Rupture POSITIVE Result Diagrams: 10/28/18 13:07 Problem List Initiated/Reviewed/Updated: Yes Orders Last 24hrs: Active Orders 24 hr Category Date Time Status Patient Status [ADT] Routine ADT 10/28/18 12:01 Active Patient Status [ADT] Routine ADT 10/28/18 12:51 Active Notify Provider Vital Signs [RC] PRN Care 10/28/18 12:51 Active Procedure Site Prep Instruct [RC] ASDIRECTED Care 10/28/18 12:51 Active Up ad Katherine [RC] ASDIRECTED Care 10/28/18 12:01 Active Up ad Katherine [RC] ASDIRECTED Care 10/28/18 12:51 Active Vaginal Exam [RC] Click to Edit Care 10/28/18 12:01 Active Verify Patient Consent Obtain [RC] ASDIRECTED Care 10/28/18 12:51 Active Vital Signs [RC] PER UNIT ROUTINE Care 10/28/18 12:01 Active Vital Signs [RC] PER UNIT ROUTINE Care 10/28/18 12:51 Active TYPE AND SCREEN [BBK] Routine Lab 10/28/18 13:07 Received Lactated Ringers [Ringers, Lactated] 1,000 ml Med 10/28/18 13:00 Active IV BOLUS Oxytocin/0.9 % Sodium Chloride [Oxytocin 30 Unit/500 ML Med 10/28/18 13:00 Active -NS] 30 unit in 500 ml IV TITRATE Sodium Chloride 0.9% [Normal Saline] Med 10/28/18 12:51 Active 10 ml IV ASDIRECTED PRN Sodium Chloride 0.9% [Saline Flush] Med 10/28/18 12:51 Active 10 ml FLUSH ASDIRECTED PRN Sodium Chloride 0.9% [Saline Flush] Med 10/28/18 12:51 Active 2.5 ml FLUSH ASDIRECTED PRN Peripheral IV Insertion Adult [OM.PC] Routine Oth 10/28/18 12:51 Ordered Schedule Procedure [COMM] Per Unit Routine Oth 10/28/18 12:51 Ordered Resuscitation Status Routine Resus Stat 10/28/18 12:01 Ordered Medication Orders Oxytocin/Sodium Chloride (Oxytocin 30 Unit/500 Ml-Ns) 30 unit in 500 mls @ 250 mls/hr IV TITRATE MICHELLE Lactated Ringer's (Ringers, Lactated) 1,000 mls @ 500 mls/hr IV BOLUS MICHELLE Sodium Chloride (Saline Flush) 10 ml FLUSH ASDIRECTED PRN PRN Reason: Keep Vein Open Sodium Chloride (Saline Flush) 2.5 ml FLUSH ASDIRECTED PRN PRN Reason: Keep Vein Open Sodium Chloride (Normal Saline) 10 ml IV ASDIRECTED PRN PRN Reason: IV Use Assessment/Plan Comment:: Status post section 3 intrauterine 38 weeks plus she is scheduled for elective repeat section next week however she presented today in labor and delivery with leaking amniotic fluid and AmniSure test is positive. We will go ahead and repeat her section today
[2018-10-28] MEDS ORDERED: ePHEDrine 50 MG/ML SDV IVPUSH PRN (15:38)
[2018-10-28] MEDS ORDERED: Phenylephrine/Normal Saline 100 MCG/ML 10 ML Syringe IVPUSH PRN (15:38)
[2018-10-28] MEDS ORDERED: Ketorolac 30 MG/ML SDV ONE (15:53)
[2018-10-28] MEDS ORDERED: Ondansetron 4 MG/2 ML SDV ONE (15:53)
[2018-10-28] MEDS ORDERED: Oxytocin 10 Units/1 ML SDV ONE (15:53)
[2018-10-28] MEDS ORDERED: Morphine PF 10 MG/10 ML SDV ONE (15:56)
[2018-10-28] MEDS ORDERED: diphenhydrAMINE 50 MG/ML SDV IVPUSH PRN (16:43)
[2018-10-28] MEDS ORDERED: Bisacodyl 10 MG Supp RECTAL PRN (16:43)
[2018-10-28] MEDS ORDERED: Acetaminophen/oxyCODONE 325-5 MG Tab PO PRN ×2 (16:43→20:31)
[2018-10-28] MEDS ORDERED: Lanolin 100% Cream 7 GM Tube TOP PRN (16:43)
[2018-10-28] MEDS ORDERED: Ondansetron 4 MG/2 ML SDV IVPUSH PRN (16:43)
--- NOTE | 2018-10-28 16:47 | PCM.OPNOTE ---
- General Post-Op/Procedure Note Date of Surgery/Procedure: 10/28/18 Operative Procedure(s): Repeat C/section Pre Op Diagnosis: IUP 38+ in labor previous C/section X3 Post-Op Diagnosis: Same Anesthesia Technique: Spinal Primary Surgeon: Max Felton Supervisor [employer] Room: Kelly Ramos EBL in mLs: 600 Complications: None Condition: Good
[2018-10-28] MEDS ORDERED: Octyl 2-Cyanoacrylate 1 Tube ONE (16:53)
--- NOTE | 2018-10-28 17:42 | PCM.POSTAN ---
POST ANESTHESIA ASSESSMENT - MENTAL STATUS Mental Status: Alert - RESPIRATORY Respiratory Status: Respiratory Rate WNL - CARDIOVASCULAR CV Status: Pulse Rate WNL - GASTROINTESTINAL GI Status: No Symptoms - POST OP HYDRATION Hydration Status: Adequate & Stable
--- NOTE | 2018-10-28 18:23 | OR ---
SURGEON: Max Felton MD DATE OF PROCEDURE: 10/28/2018 PREOPERATIVE DIAGNOSES: Intrauterine at 38 weeks plus, previous section x3, in labor. POSTOPERATIVE DIAGNOSIS: Intrauterine at 38 weeks plus, previous section x3, in labor. OPERATION PERFORMED: Repeat low-transverse section. PRIMARY SURGEON: Max Felton MD. REPORTING COORDINATOR: Kelly Ramos CNM, certified nurse baggage agent. ANESTHESIA: Spinal. ANESTHESIOLOGIST: Mr. Hogan and Dr. Lassiter. ESTIMATED BLOOD LOSS: 600 mL. COMPLICATIONS: None. FINDING: Female fetus. score reported to be 8 and 9. Weight is not available. Normal uterus, tubes, and ovaries. INDICATION FOR SURGERY: This patient has had 3 previous sections. She is followed in our clinic primarily by me. She presented to Labor and Delivery with spontaneous rupture of the membrane that was confirmed by AmniSure and she started having contraction. Decision was made to repeat her section. She was scheduled for elective section in 10 days. PROCEDURE IN DETAIL: The patient was brought to the OR properly identified, and after adequate spinal anesthesia with a Gee catheter in the bladder, time-out was taken, and the patient was prepped and draped in sterile fashion as usual. Low transverse Pfannenstiel skin incision through the old scar was done. Mikayla fascia and rectus fascia were opened in direction of the incision. The 2 recti muscles . Peritoneal cavity was opened. The bladder flap was raised in the usual manner pushing the bladder away from the lower uterine segment. Low transverse uterine incision was done and extended manually with hand, fetus was delivered and was in a vertex position. There were 2 nuchal cords and clear amniotic fluid. The fetus cried immediately after delivery and it was female. score reported to be 8 and 9. The weight is not available. The placenta delivered spontaneous complete and intact, and then, repair of the lower uterine segment was done with 2-0 Vicryl continuous interlocking in 2 layers. Reperitonealization done with 3-0 Vicryl continuous and the peritoneal cavity evacuated completely from all blood and blood clot and closed with 3-0 Vicryl continuous. Rectus fascia was closed with #1 PDS continuous, Mikayla's fascia with 3-0 Vicryl continuous, and the skin was closed with 3-0 on a Myron needle in a subcuticular fashion. Instrument and sponge count was correct. The patient tolerated the procedure well, went to recovery room in stable general condition. MANDEEP / TEDDY /[id number]
[2018-10-28] MEDS: Lactated Ringers 1,000 ML IV SCH (20:16)
[2018-10-28] MEDS: Ketorolac 30 MG/ML SDV IVPUSH SCH ×2 (20:19→22:50)
[2018-10-28] MEDS: Acetaminophen/oxyCODONE 325-5 MG Tab PO PRN (20:48)
[2018-10-28] MEDS: Docusate Sodium 100 MG Cap PO SCH (20:48)
[2018-10-29] MEDS: Lactated Ringers 1,000 ML IV SCH ×2 (02:21→15:24)
[2018-10-29] MEDS: Ketorolac 30 MG/ML SDV IVPUSH SCH ×3 (04:39→16:47)
--- NOTE | 2018-10-29 07:16 | PCM48HPAN ---
Post Anesthesia Note - EVALUATION WITHIN 48HRS OF ANESTHETIC Vital Signs in Normal Range: Yes Patient Participated in Evaluation: Yes Respiratory Function Stable: Yes Airway Patent: Yes Cardiovascular Function Stable: Yes Hydration Status Stable: Yes Pain Control Satisfactory: Yes Nausea and Vomiting Control Satisfactory: Yes Mental Status Recovered: Yes Resp Rate: 17
--- NOTE | 2018-10-29 08:56 | PCM.PREANE ---
Preanesthetic Assessment - Anesthesia/Transfusion/Family Hx Anesthesia History: Prior Anesthesia Without Reaction Family History of Anesthesia Reaction: No Transfusion History: No Prior Transfusion(s) Intubation History: Unknown - Review of Systems General: No Symptoms Pulmonary: No Symptoms Cardiovascular: No Symptoms Gastrointestinal: No Symptoms Neurological: No Symptoms Other: Reports: None - Physical Assessment NPO Status Date: 10/28/18 NPO Status Time: 03:00 O2 Sat by Pulse Oximetry: 98 Respiratory Rate: 15 Vital Signs: Last Vital Signs Temp 36.3 C 10/29/18 07:55 Pulse 87 10/29/18 07:55 Resp 15 10/29/18 07:55 BP 96/55 L 10/29/18 07:55 Pulse Ox 98 10/29/18 07:55 Height: 5 ft Weight: 90.265 kg ASA Class: 2 Mental Status: Alert & Oriented x3 Airway Class: Mallampati = 2 Dentition: Reports: Normal Dentition Thyro-Mental Finger Breadths: 3 Mouth Opening Finger Breadths: 3 ROM/Head Extension: Full Lungs: Clear to Auscultation, Normal Respiratory Effort Cardiovascular: Regular Rate, Regular Rhythm - Lab Values: Laboratory Last Values WBC 9.28 K/uL (4.0-11.0) 10/28/18 13:07 RBC 4.25 M/uL (4.30-5.90) L 10/28/18 13:07 Hgb 8.4 g/dL (12.0-16.0) L 10/29/18 05:46 Hct 26.2 % (36.0-46.0) L 10/29/18 05:46 MCV 83.1 fL (80.0-98.0) 10/28/18 13:07 MCH 26.8 pg (27.0-32.0) L 10/28/18 13:07 MCHC 32.3 g/dL (31.0-37.0) 10/28/18 13:07 RDW Std Deviation 45.4 fl (28.0-62.0) 10/28/18 13:07 RDW Coeff of Fozia 15 % (11.0-15.0) 10/28/18 13:07 Plt Count 179 K/uL (150-400) 10/28/18 13:07 MPV 11.20 fL (7.40-12.00) 10/28/18 13:07 Nucleated RBC % 0.0 /100WBC 10/28/18 13:07 Nucleated RBCs # 0 K/uL 10/28/18 13:07 Membrane Rupture POSITIVE 10/28/18 11:55 Blood Type O POSITIVE 10/28/18 13:07 Antibody Screen NEGATIVE 10/28/18 13:07 - Allergies Allergies/Adverse Reactions: Allergies Allergy/AdvReac Type Severity Reaction Status Date / Time No Known Allergies Allergy Verified 01/28/17 06:02 - Blood Blood Available: No - Anesthesia Plan Pre-Op Medication Ordered: None - Acknowledgements Anesthesia Type Planned: Spinal Pt an Appropriate Candidate for the Planned Anesthesia: Yes Alternatives and Risks of Anesthesia Discussed w Pt/Guardian: Yes Pt/Guardian Understands and Agrees with Anesthesia Plan: Yes PreAnesthesia Questionnaire HEENT History: Reports: None Cardiovascular History: Reports: None Respiratory History: Reports: None Gastrointestinal History: Reports: None Genitourinary History: Reports: None BAG PRINTER History: 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: Other OB/BYN History: c/s x 3 Musculoskeletal History: Reports: None Neurological History: Reports: None Psychiatric History: Reports: None Endocrine/Metabolic History: Reports: Obesity/BMI 30+ Hematologic History: Reports: None Immunologic History: Reports: None Oncologic (Cancer) History: Reports: None Dermatologic History: Reports: None - Past Surgical History Head Surgeries/Procedures: Reports: None Female Surgical History: Reports: Section Endocrine Surgical History: Reports: None Musculoskeletal Surgical History: Reports: Other (See Below) Other Musculoskeletal Surgeries/Procedures:: cyst removed from wrist - SUBSTANCE USE Smoking Status *Q: Never Smoker Recreational Drug Use History: No - HOME MEDS Home Medications: Home Meds PNV95/Ferrous Fumarate/FA [ Multivitamins] 1 tab PO DAILY 08/21/14 [ History] - CURRENT (IN HOUSE) MEDS Current Meds: Current Medications Bisacodyl (Dulcolax) 10 mg RECTAL ONETIME PRN PRN Reason: Constipation Diphenhydramine HCl (Benadryl) 25 mg IVPUSH Q6H PRN PRN Reason: Itching or Nausea Docusate Sodium (Colace) 100 mg PO BID MICHELLE Last Admin: 10/28/18 20:48 Dose: 100 mg Emollient Ointment (Lansinoh Hpa) 0 gm TOP ASDIRECTED PRN PRN Reason: Sore Nipples Ephedrine Sulfate (Ephedrine Sulfate) 10 mg IVPUSH Q5M PRN PRN Reason: Hypotension Oxytocin/Sodium Chloride (Oxytocin 30 Unit/500 Ml-Ns) 30 unit in 500 mls @ 250 mls/hr IV TITRATE [facility] Lactated Ringer's (Ringers, Lactated) 1,000 mls @ 500 mls/hr IV BOLUS [facility] Last Admin: 10/28/18 13:07 Dose: 999 mls/hr Lactated Ringer's (Ringers, Lactated) 1,000 mls @ 125 mls/hr IV Q8H [facility] Last Admin: 10/29/18 02:21 Dose: Not Given Ibuprofen (Motrin) 800 mg PO Q8H PRN PRN Reason: mild pain or fever Ketorolac Tromethamine (Toradol) 30 mg IVPUSH Q6H [facility] Stop: 10/29/18 16:46 Last Admin: 10/29/18 04:39 Dose: 30 mg Ondansetron HCl (Zofran) 4 mg IVPUSH Q4H PRN PRN Reason: Nausea/Vomiting Last Admin: 10/28/18 22:59 Dose: 4 mg Oxycodone/Acetaminophen (Percocet 325-5 Mg) 1 tab PO Q4H PRN PRN Reason: Pain (moderate 4-6) Last Admin: 10/28/18 20:48 Dose: 1 tab Oxycodone/Acetaminophen (Percocet 325-5 Mg) 2 tab PO Q4H PRN PRN Reason: Pain (moderate 4-6) Phenylephrine HCl (Phenylephrine In Ns 100 Mcg/Ml) 0.1 mg IVPUSH Q5M PRN PRN Reason: Hypotension Sodium Chloride (Saline Flush) 10 ml FLUSH ASDIRECTED PRN PRN Reason: Keep Vein Open Sodium Chloride (Saline Flush) 2.5 ml FLUSH ASDIRECTED PRN PRN Reason: Keep Vein Open Sodium Chloride (Normal Saline) 10 ml IV ASDIRECTED PRN PRN Reason: IV Use Discontinued Medications Citric Acid/Sodium Citrate (Bicitra Solution) 30 ml PO ONETIME ONE Stop: 10/28/18 12:52 Last Admin: 10/28/18 20:19 Dose: Not Given Ketorolac Tromethamine (Toradol) Confirm Administered Dose 30 mg .ROUTE .STK- MED ONE Stop: 10/28/18 15:54 Morphine Sulfate (Duramorph Pf) Confirm Administered Dose 10 mg .ROUTE .STK-MED ONE Stop: 10/28/18 15:57 Octyl Cyanoacrylate (Dermabond Advance) Confirm Administered Dose 1 applic .ROUTE .STK-MED ONE Stop: 10/28/18 16:54 Last Admin: 10/28/18 20:19 Dose: Not Given Ondansetron HCl (Zofran) Confirm Administered Dose 4 mg .ROUTE .STK-MED ONE Stop: 10/28/18 15:54 Oxycodone/Acetaminophen (Percocet 325-5 Mg) 1 tab PO Q4H PRN PRN Reason: Breakthrough Pain Oxytocin (Pitocin) Confirm Administered Dose 20 unit .ROUTE .STK-MED ONE Stop: 10/28/18 15:54
--- NOTE | 2018-10-29 09:03 | PCM.PNPP ---
- General Info Date of Service: 10/29/18 Admission Dx/Problem (Free Text): Patient Status Order with Admit Dx/Problem 10/28/18 12:01 Patient Status [ADT] Routine 10/28/18 12:51 Patient Status [ADT] Routine Admission Diagnosis/Problem Admission Diagnosis/Problem Functional Status: Reports: Pain Controlled, Tolerating Diet - Review of Systems General: Reports: No Symptoms HEENT: Reports: No Symptoms Pulmonary: Reports: No Symptoms Cardiovascular: Reports: No Symptoms Gastrointestinal: Reports: No Symptoms Genitourinary: Reports: No Symptoms Musculoskeletal: Reports: No Symptoms Skin: Reports: No Symptoms Neurological: Reports: No Symptoms Psychiatric: Reports: No Symptoms - General Info Date of Service: 10/29/18 - Patient Data Vital Signs - Most Recent: Last Vital Signs Temp 36.3 C 10/29/18 07:55 Pulse 87 10/29/18 07:55 Resp 15 10/29/18 08:56 BP 96/55 L 10/29/18 07:55 Pulse Ox 98 10/29/18 08:56 Weight - Most Recent: 90.265 kg I&O - Last 24 Hours: Intake & Output 10/28/18 10/29/18 10/29/18 22:59 06:59 14:59 Intake Total 1600 991 Output Total 475 1050 Balance 1125 -59 Lab Results - Last 24 Hours: Laboratory Results - last 24 hr 10/28/18 10/28/18 10/28/18 Range/Units 11:55 13:07 13:07 WBC 9.28 (4.0-11.0) K/uL RBC 4.25 L (4.30-5.90) M/uL Hgb 11.4 L (12.0-16.0) g/dL Hct 35.3 L (36.0-46.0) % MCV 83.1 (80.0-98.0) fL MCH 26.8 L (27.0-32.0) pg MCHC 32.3 (31.0-37.0) g/dL RDW Std Deviation 45.4 (28.0-62.0) fl RDW Coeff of Fozia 15 (11.0-15.0) % Plt Count 179 (150-400) K/uL MPV 11.20 (7.40-12.00) fL Nucleated RBC % 0.0 /100WBC Nucleated RBCs # 0 K/uL Membrane Rupture POSITIVE Blood Type O POSITIVE Antibody Screen NEGATIVE 10/29/18 Range/Units 05:46 WBC (4.0-11.0) K/uL RBC (4.30-5.90) M/uL Hgb 8.4 L (12.0-16.0) g/dL Hct 26.2 L (36.0-46.0) % MCV (80.0-98.0) fL MCH (27.0-32.0) pg MCHC (31.0-37.0) g/dL RDW Std Deviation (28.0-62.0) fl RDW Coeff of Fozia (11.0-15.0) % Plt Count (150-400) K/uL MPV (7.40-12.00) fL Nucleated RBC % /100WBC Nucleated RBCs # K/uL Membrane Rupture Blood Type Antibody Screen Med Orders - Current: Current Medications Bisacodyl (Dulcolax) 10 mg RECTAL ONETIME PRN PRN Reason: Constipation Diphenhydramine HCl (Benadryl) 25 mg IVPUSH Q6H PRN PRN Reason: Itching or Nausea Docusate Sodium (Colace) 100 mg PO BID [facility] Last Admin: 10/28/18 20:48 Dose: 100 mg Emollient Ointment (Lansinoh Hpa) 0 gm TOP ASDIRECTED PRN PRN Reason: Sore Nipples Ephedrine Sulfate (Ephedrine Sulfate) 10 mg IVPUSH Q5M PRN PRN Reason: Hypotension Oxytocin/Sodium Chloride (Oxytocin 30 Unit/500 Ml-Ns) 30 unit in 500 mls @ 250 mls/hr IV TITRATE [facility] Lactated Ringer's (Ringers, Lactated) 1,000 mls @ 500 mls/hr IV BOLUS [facility] Last Admin: 10/28/18 13:07 Dose: 999 mls/hr Lactated Ringer's (Ringers, Lactated) 1,000 mls @ 125 mls/hr IV Q8H [facility] Last Admin: 10/29/18 02:21 Dose: Not Given Ibuprofen (Motrin) 800 mg PO Q8H PRN PRN Reason: mild pain or fever Ketorolac Tromethamine (Toradol) 30 mg IVPUSH Q6H [facility] Stop: 10/29/18 16:46 Last Admin: 10/29/18 04:39 Dose: 30 mg Ondansetron HCl (Zofran) 4 mg IVPUSH Q4H PRN PRN Reason: Nausea/Vomiting Last Admin: 10/28/18 22:59 Dose: 4 mg Oxycodone/Acetaminophen (Percocet 325-5 Mg) 1 tab PO Q4H PRN PRN Reason: Pain (moderate 4-6) Last Admin: 10/28/18 20:48 Dose: 1 tab Oxycodone/Acetaminophen (Percocet 325-5 Mg) 2 tab PO Q4H PRN PRN Reason: Pain (moderate 4-6) Phenylephrine HCl (Phenylephrine In Ns 100 Mcg/Ml) 0.1 mg IVPUSH Q5M PRN PRN Reason: Hypotension Sodium Chloride (Saline Flush) 10 ml FLUSH ASDIRECTED PRN PRN Reason: Keep Vein Open Sodium Chloride (Saline Flush) 2.5 ml FLUSH ASDIRECTED PRN PRN Reason: Keep Vein Open Sodium Chloride (Normal Saline) 10 ml IV ASDIRECTED PRN PRN Reason: IV Use Discontinued Medications Citric Acid/Sodium Citrate (Bicitra Solution) 30 ml PO ONETIME ONE Stop: 10/28/18 12:52 Last Admin: 10/28/18 20:19 Dose: Not Given Ketorolac Tromethamine (Toradol) Confirm Administered Dose 30 mg .ROUTE .STK- MED ONE Stop: 10/28/18 15:54 Morphine Sulfate (Duramorph Pf) Confirm Administered Dose 10 mg .ROUTE .STK-MED ONE Stop: 10/28/18 15:57 Octyl Cyanoacrylate (Dermabond Advance) Confirm Administered Dose 1 applic .ROUTE .STK-MED ONE Stop: 10/28/18 16:54 Last Admin: 10/28/18 20:19 Dose: Not Given Ondansetron HCl (Zofran) Confirm Administered Dose 4 mg .ROUTE .STK-MED ONE Stop: 10/28/18 15:54 Oxycodone/Acetaminophen (Percocet 325-5 Mg) 1 tab PO Q4H PRN PRN Reason: Breakthrough Pain Oxytocin (Pitocin) Confirm Administered Dose 20 unit .ROUTE .STK-MED ONE Stop: 10/28/18 15:54 - Infant Interaction Disposition, : to Nursery Interaction: Holding Feeding: Breastfed Infant; Nursed Well Support Person: - Recovery Exam Fundal Tone: Firm Fundal Level: 1 Fingerbreadths Below Umbilicus Fundal Placement: Midline Lochia Amount: Small Lochia Color: Rubra/Red Perineum Description: Intact, Minimal Bruising/Swelling Episiotomy/Laceration: None Bladder Status: Indwelling Catheter in Place Urinary Elimination: Indwelling Catheter - Exam General: Alert, Oriented, Cooperative, No Acute Distress Lungs: Clear to Auscultation, Normal Respiratory Effort Cardiovascular: Regular Rate, Regular Rhythm GI/Abdominal Exam: Soft, Non-Tender Extremities: Normal Inspection, Normal Range of Motion, Non-Tender Skin: Warm Wound/Incisions: Dressing Dry and Intact Neurological: No New Focal Deficit, Normal Speech, Normal Tone, Strength Equal Bilateral Psy/Mental Status: Alert, Normal Affect, Normal Mood - Problem List & Annotations (1) delivery, delivered, current hospitalization SNOMED Code(s): 059674581 Code(s): O82 - ENCOUNTER FOR DELIVERY WITHOUT INDICATION Status: Acute Priority: Medium Current Visit: No (2) Supervision of normal IUP (intrauterine ) in multigravida SNOMED Code(s): 870282054, 365526385, 721126138 Code(s): Z34.90 - ENCNTR FOR SUPRVSN OF NORMAL , UNSP, UNSP TRIMESTER Status: Acute Priority: High Current Visit: No Qualifiers: Trimester: third trimester - Problem List Review Problem List Initiated/Reviewed/Updated: Yes - Plan Plan:: Status post section 3 intrauterine 38 weeks plus she is scheduled for elective repeat section next week however she presented today in labor and delivery with leaking amniotic fluid and AmniSure test is positive. We will go ahead and repeat her section today PPD1 A: VSS, AF, dressing dry/intact, lochia small, some gas and ordered meds, madsen to [facility]. P: advised to walk to help decrease gas, routine pp plan of care. May go home today if she is stable and desires.
[2018-10-29] MEDS: Docusate Sodium 100 MG Cap PO SCH ×2 (09:51→20:57)
[2018-10-29] MEDS ORDERED: Simethicone 80 MG Tab.Chew PO PRN (09:52)
[2018-10-29] MEDS: Acetaminophen/oxyCODONE 325-5 MG Tab PO PRN (20:57)
[2018-10-29] MEDS: Ibuprofen 800 MG Tab PO PRN (23:08)
[2018-10-30] MEDS: Acetaminophen/oxyCODONE 325-5 MG Tab PO PRN ×3 (01:26→10:41)
--- NOTE | 2018-10-30 08:40 | PCM.DCSUM1 ---
Discharge Summary - Hospital Course Free Text/Narrative:: Discharge home with . Follow up in 1 week for incision check and 6 weeks for visit. Diagnosis: Stroke: No Modified [place] Scale: No Symptoms at All Modified [place] Scale Score: 0 - Discharge Data Discharge Date: 10/30/18 Discharge Disposition: Home, Self-Care 01 Condition: Good - Discharge Diagnosis/Problem(s) (1) delivery, delivered, current hospitalization SNOMED Code(s): 352594276 ICD Code: O82 - ENCOUNTER FOR DELIVERY WITHOUT INDICATION Status: Acute Priority: Medium Current Visit: No (2) Supervision of normal IUP (intrauterine ) in multigravida SNOMED Code(s): 728091194, 207610948, 104814042 ICD Code: Z34.90 - ENCNTR FOR SUPRVSN OF NORMAL , UNSP, UNSP TRIMESTER Status: Acute Priority: High Current Visit: No Qualifiers: Trimester: third trimester - Patient Summary/Data Operative Procedure(s) Performed: Repeat C/section - Patient Instructions Diet: Usual Diet as Tolerated Activity: As Tolerated, No Strenuous Activities, Rest and Relax Today Driving: Do Not Drive Showering/Bathing: May Shower Wound/Incision Care: Keep Operative Site/Wound Site Clean and Dry Notify Provider of: Fever, Increased Pain, Swelling and Redness, Drainage, Nausea and/or Vomiting Other/Special Instructions: Discharge home with . Follow up in 1 week for incision check and 6 weeks for visit. - Discharge Plan *PRESCRIPTION DRUG MONITORING PROGRAM REVIEWED*: Not Applicable *COPY OF PRESCRIPTION DRUG MONITORING REPORT IN PATIENT YAMILE: Not Applicable Prescriptions/Med Rec: Acetaminophen/oxyCODONE [Percocet 325-5 MG] 1 tab PO Q4H PRN #30 tablet PRN Reason: Pain (Moderate 4-6) Ibuprofen [Motrin] 800 mg PO Q8H PRN #90 tablet PRN Reason: mild pain or fever Home Medications: Home Meds PNV95/Ferrous Fumarate/FA [ Multivitamins] 1 tab PO DAILY 08/21/14 [ History] Acetaminophen/oxyCODONE [Percocet 325-5 MG] 1 tab PO Q4H PRN #30 tablet [Rx] Ibuprofen [Motrin] 800 mg PO Q8H PRN #90 tablet 10/30/18 [Rx] - Discharge Summary/Plan Comment DC Time >30 min.: Yes - General Info Admission Dx/Problem (Free Text: Patient Status Order with Admit Dx/Problem 10/28/18 12:01 Patient Status [ADT] Routine 10/28/18 12:51 Patient Status [ADT] Routine Admission Diagnosis/Problem Admission Diagnosis/Problem Functional Status: Reports: Pain Controlled, Tolerating Diet, Ambulating, Urinating - Review of Systems General: Reports: No Symptoms HEENT: Reports: No Symptoms Pulmonary: Reports: No Symptoms Cardiovascular: Reports: No Symptoms Gastrointestinal: Reports: No Symptoms Genitourinary: Reports: No Symptoms Musculoskeletal: Reports: No Symptoms Skin: Reports: No Symptoms Neurological: Reports: No Symptoms Psychiatric: Reports: No Symptoms - Patient Data Vitals - Most Recent: Last Vital Signs Temp 36.6 C 10/30/18 08:11 Pulse 101 H 10/30/18 08:11 Resp 19 10/30/18 08:11 BP 116/76 10/30/18 08:11 Pulse Ox 97 10/30/18 08:11 Weight - Most Recent: 90.265 kg Med Orders - Current: Current Medications Bisacodyl (Dulcolax) 10 mg RECTAL ONETIME PRN PRN Reason: Constipation Diphenhydramine HCl (Benadryl) 25 mg IVPUSH Q6H PRN PRN Reason: Itching or Nausea Docusate Sodium (Colace) 100 mg PO BID [facility] Last Admin: 10/29/18 20:57 Dose: 100 mg Emollient Ointment (Lansinoh Hpa) 0 gm TOP ASDIRECTED PRN PRN Reason: Sore Nipples Ephedrine Sulfate (Ephedrine Sulfate) 10 mg IVPUSH Q5M PRN PRN Reason: Hypotension Oxytocin/Sodium Chloride (Oxytocin 30 Unit/500 Ml-Ns) 30 unit in 500 mls @ 250 mls/hr IV TITRATE [facility] Lactated Ringer's (Ringers, Lactated) 1,000 mls @ 500 mls/hr IV BOLUS [facility] Last Admin: 10/28/18 13:07 Dose: 999 mls/hr Ibuprofen (Motrin) 800 mg PO Q8H PRN PRN Reason: mild pain or fever Last Admin: 10/29/18 23:08 Dose: 800 mg Ondansetron HCl (Zofran) 4 mg IVPUSH Q4H PRN PRN Reason: Nausea/Vomiting Last Admin: 10/28/18 22:59 Dose: 4 mg Oxycodone/Acetaminophen (Percocet 325-5 Mg) 1 tab PO Q4H PRN PRN Reason: Pain (moderate 4-6) Last Admin: 10/30/18 06:35 Dose: 1 tab Oxycodone/Acetaminophen (Percocet 325-5 Mg) 2 tab PO Q4H PRN PRN Reason: Pain (moderate 4-6) Phenylephrine HCl (Phenylephrine In Ns 100 Mcg/Ml) 0.1 mg IVPUSH Q5M PRN PRN Reason: Hypotension Simethicone (Simethicone) 80 mg PO Q6H PRN PRN Reason: Gas Last Admin: 10/29/18 09:59 Dose: 80 mg Sodium Chloride (Saline Flush) 10 ml FLUSH ASDIRECTED PRN PRN Reason: Keep Vein Open Sodium Chloride (Saline Flush) 2.5 ml FLUSH ASDIRECTED PRN PRN Reason: Keep Vein Open Sodium Chloride (Normal Saline) 10 ml IV ASDIRECTED PRN PRN Reason: IV Use Discontinued Medications Citric Acid/Sodium Citrate (Bicitra Solution) 30 ml PO ONETIME ONE Stop: 10/28/18 12:52 Last Admin: 10/28/18 20:19 Dose: Not Given Lactated Ringer's (Ringers, Lactated) 1,000 mls @ 125 mls/hr IV Q8H [facility] Last Admin: 10/29/18 15:24 Dose: Not Given Ketorolac Tromethamine (Toradol) Confirm Administered Dose 30 mg .ROUTE .STK- MED ONE Stop: 10/28/18 15:54 Ketorolac Tromethamine (Toradol) 30 mg IVPUSH Q6H [facility] Stop: 10/29/18 16:46 Last Admin: 10/29/18 16:47 Dose: 30 mg Morphine Sulfate (Duramorph Pf) Confirm Administered Dose 10 mg .ROUTE .STK-MED ONE Stop: 10/28/18 15:57 Last Admin: 10/29/18 15:24 Dose: Not Given Octyl Cyanoacrylate (Dermabond Advance) Confirm Administered Dose 1 applic .ROUTE .STK-MED ONE Stop: 10/28/18 16:54 Last Admin: 10/28/18 20:19 Dose: Not Given Ondansetron HCl (Zofran) Confirm Administered Dose 4 mg .ROUTE .STK-MED ONE Stop: 10/28/18 15:54 Oxycodone/Acetaminophen (Percocet 325-5 Mg) 1 tab PO Q4H PRN PRN Reason: Breakthrough Pain Oxytocin (Pitocin) Confirm Administered Dose 20 unit .ROUTE .STK-MED ONE Stop: 10/28/18 15:54 - Exam General: Reports: Alert, Oriented, Cooperative, No Acute Distress Lungs: Reports: Clear to Auscultation, Normal Respiratory Effort. Denies: Decreased Breath Sounds Cardiovascular: Reports: Regular Rate, Regular Rhythm. Denies: No Murmurs (Female) Exam: Deferred, Vaginal Bleeding Rectal (Female) Exam: Deferred Back Exam: Reports: Normal Inspection, Full Range of Motion Extremities: Normal Inspection, Normal Range of Motion, Non-Tender, No Pedal Edema Skin: Reports: Warm, Dry, Intact Wound/Incisions: Reports: Healing Well, No Drainage. Denies: Erythema Neurological: Reports: No New Focal Deficit, Normal Speech, Normal Tone, Strength Equal Bilateral, Sensation Intact Psy/Mental Status: Reports: Alert, Normal Affect, Normal Mood
[2018-10-30] MEDS: Ibuprofen 800 MG Tab PO PRN (09:57)
[2018-10-30] MEDS: Docusate Sodium 100 MG Cap PO SCH (09:58)
[2018-10-30 13:06] VITALS: BP 117/79; PULSE 92
== END 2018-10-30 12:30 | disposition home or self-care (01) | DRG 788 ==
LOC: MW.OBCHECK 11:51 → MW.OB 11:52 → MW.OBCHECK 15:10 → MW.OB 23:30
PROVIDERS: ADMIT Obstetrics & Gynecology; ATTEND Obstetrics & Gynecology
PROC: 10D00Z1 Extraction of Products of Conception, Low, Open Approach (ICD-10-PCS; principal; 2018-10-28)
DX: O34.211 Maternal care for low transverse scar from previous cesarean delivery (principal); Z3A.38 38 weeks gestation of pregnancy; Z37.0 Single live birth; O69.81X0 Labor and delivery complicated by cord around neck, without compression, not applicable or unspecified
CPT/HCPCS: 01961; 36415; 59025; 84112; 85014; 85018; 85027; 86850; 86900; 86901; A9270-GY; J1885; J2270; J2405; J2590; J7120

== ENCOUNTER 2020-01-12 10:15 | Inpatient (IN) | payer OTHER ==
[2020-01-12] MEDS ORDERED: ceFAZolin 2 GM in Premix Bag 1 BAG IV ONE (10:21)
[2020-01-12] MEDS ORDERED: Sodium Chloride 0.9% 10 ML SDV IV PRN (10:21)
[2020-01-12] MEDS ORDERED: Sodium Chloride 0.9% 10 ML Syringe FLUSH PRN (10:21)
[2020-01-12] MEDS ORDERED: Sodium Chloride 0.9% 2.5 ML Syringe FLUSH PRN (10:21)
[2020-01-12] MEDS ORDERED: fentaNYL 100 MCG/2 ML SDV ONE (10:21)
[2020-01-12] MEDS ORDERED: Morphine PF 10 MG/10 ML SDV ONE (10:21)
[2020-01-12] MEDS ORDERED: Citric Acid/Sodium Citrate Solution 30 ML Cup PO ONE (10:21)
[2020-01-12] MEDS ORDERED: Ketorolac 30 MG/ML SDV ONE (10:22)
[2020-01-12] MEDS ORDERED: Oxytocin 10 Units/1 ML SDV ONE ×2 (10:22→13:28)
[2020-01-12] MEDS ORDERED: Ondansetron 4 MG/2 ML SDV ONE (10:22)
[2020-01-12] MEDS ORDERED: Dexamethasone 4 MG/ML 5 ML MDV ONE (10:23)
[2020-01-12] MEDS ORDERED: Oxytocin/0.9 % Sodium Chloride 30 UNIT/500 ML BAG IV SCH (10:30)
--- NOTE | 2020-01-12 10:35 | PCM.PREANE ---
Preanesthetic Assessment - Anesthesia/Transfusion/Family Hx Anesthesia History: Prior Anesthesia Without Reaction Family History of Anesthesia Reaction: No Transfusion History: No Prior Transfusion(s) Intubation History: Unknown - Review of Systems General: No Symptoms Pulmonary: No Symptoms Cardiovascular: No Symptoms Gastrointestinal: No Symptoms Neurological: No Symptoms Other: Reports: None - Physical Assessment Height: 5 ft Weight: 90.718 kg ASA Class: 2 Mental Status: Alert & Oriented x3 Airway Class: Mallampati = 2 Dentition: Reports: Normal Dentition Thyro-Mental Finger Breadths: 3 Mouth Opening Finger Breadths: 3 ROM/Head Extension: Full Lungs: Clear to Auscultation, Normal Respiratory Effort Cardiovascular: Regular Rate, Regular Rhythm - Allergies Allergies/Adverse Reactions: Allergies Allergy/AdvReac Type Severity Reaction Status Date / Time No Known Allergies Allergy Verified 01/08/20 10:28 - Blood Blood Available: No - Anesthesia Plan Pre-Op Medication Ordered: None - Acknowledgements Anesthesia Type Planned: Spinal (general anesthesia back-up) Pt an Appropriate Candidate for the Planned Anesthesia: Yes Alternatives and Risks of Anesthesia Discussed w Pt/Guardian: Yes Pt/Guardian Understands and Agrees with Anesthesia Plan: Yes PreAnesthesia Questionnaire HEENT History: Reports: None Cardiovascular History: Reports: None Respiratory History: Reports: None Gastrointestinal History: Reports: None Genitourinary History: Reports: None 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 OB/BYN History: c/s x 3 Musculoskeletal History: Reports: None Neurological History: Reports: None Psychiatric History: Reports: None Endocrine/Metabolic History: Reports: Obesity/BMI 30+ Hematologic History: Reports: None Immunologic History: Reports: None Oncologic (Cancer) History: Reports: None Dermatologic History: Reports: None - Past Surgical History Female Surgical History: Reports: Section - SUBSTANCE USE Tobacco Use Status *Q: Never Tobacco User - HOME MEDS Home Medications: Home Meds PNV95/Ferrous Fumarate/FA [ Multivitamins] 1 tab PO DAILY 08/21/14 [History] Ascorbate Calcium [Vitamin C] 1 dose PO DAILY 01/08/20 [History] Cholecalciferol (Vitamin D3) [Vitamin D3] 1 dose PO DAILY 01/08/20 [History] - CURRENT (IN HOUSE) MEDS Current Meds: Current Medications Citric Acid/Sodium Citrate (Bicitra Solution) 30 ml PO ONETIME ONE Stop: 01/12/20 10:22 Oxytocin/Sodium Chloride (Oxytocin 30 Unit/500 Ml-Ns) 30 unit in 500 mls @ 250 mls/hr IV TITRATE [facility] Cefazolin Sodium/Dextrose 2 gm (/ Premix) 50 mls @ 100 mls/hr IV ONETIME ONE Stop: 01/12/20 10:50 Lactated Ringer's (Ringers, Lactated) 1,000 mls @ 500 mls/hr IV BOLUS [facility] Sodium Chloride (Saline Flush) 10 ml FLUSH ASDIRECTED PRN PRN Reason: Keep Vein Open Sodium Chloride (Saline Flush) 2.5 ml FLUSH ASDIRECTED PRN PRN Reason: Keep Vein Open Sodium Chloride (Normal Saline) 10 ml IV ASDIRECTED PRN PRN Reason: IV Use Discontinued Medications Dexamethasone (Dexamethasone) Confirm Administered Dose 20 mg .ROUTE .STK-MED ONE Stop: 01/12/20 10:24 Fentanyl (Sublimaze) Confirm Administered Dose 100 mcg .ROUTE .STK-MED ONE Stop: 01/12/20 10:22 Ketorolac Tromethamine (Toradol) Confirm Administered Dose 30 mg .ROUTE .STK-MED ONE Stop: 01/12/20 10:23 Morphine Sulfate (Duramorph Pf) Confirm Administered Dose 10 mg .ROUTE .STK-MED ONE Stop: 01/12/20 10:22 Ondansetron HCl (Zofran) Confirm Administered Dose 4 mg .ROUTE .STK-MED ONE Stop: 01/12/20 10:23 Oxytocin (Pitocin) Confirm Administered Dose 20 unit .ROUTE .STK-MED ONE Stop: 01/12/20 10:23
--- NOTE | 2020-01-12 10:46 | PCM.LDHP ---
L&D History of Present Illness - General Date of Service: 01/12/20 Admit Problem/Dx: Patient Status Order with Admit Dx/Problem 01/12/20 10:21 Patient Status [ADT] Routine Admission Diagnosis/Problem Admission Diagnosis/Problem Source of Information: Patient History Limitations: Reports: No Limitations - History of Present Illness Improves with: Reports: None Worsens with: Reports: None Associated Symptoms: Reports: N - Related Data Allergies/Adverse Reactions: Allergies Allergy/AdvReac Type Severity Reaction Status Date / Time No Known Allergies Allergy Verified 01/08/20 10:28 Home Medications: Home Meds PNV95/Ferrous Fumarate/FA [ Multivitamins] 1 tab PO DAILY 08/21/14 [History] Ascorbate Calcium [Vitamin C] 1 dose PO DAILY 01/08/20 [History] Cholecalciferol (Vitamin D3) [Vitamin D3] 1 dose PO DAILY 01/08/20 [History] Past Medical History HEENT History: Reports: None Cardiovascular History: Reports: None Respiratory History: Reports: None Gastrointestinal History: Reports: None Genitourinary History: Reports: None 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 OB/BYN History: c/s x 3 Musculoskeletal History: Reports: None Neurological History: Reports: None Psychiatric History: Reports: None Endocrine/Metabolic History: Reports: Obesity/BMI 30+ Hematologic History: Reports: None Immunologic History: Reports: None Oncologic (Cancer) History: Reports: None Dermatologic History: Reports: None - Past Surgical History Female Surgical History: Reports: Section Social & Family History - Family History Cardiac: Reports: NM OBGYN: Reports: Endocrine/Metabolic: Reports: Diabetes, type II - Tobacco Use Tobacco Use Status *Q: Never Tobacco User - Caffeine Use Caffeine Use: Reports: Coffee - Recreational Drug Use Drug Use in Last 12 Months: No H&P Review of Systems - Review of Systems: Review Of Systems: See Below General: Reports: No Symptoms HEENT: Reports: No Symptoms Pulmonary: Reports: No Symptoms Cardiovascular: Reports: No Symptoms Gastrointestinal: Reports: No Symptoms Genitourinary: Reports: No Symptoms Musculoskeletal: Reports: No Symptoms Skin: Reports: No Symptoms Psychiatric: Reports: No Symptoms Neurological: Reports: No Symptoms Hematologic/Lymphatic: Reports: No Symptoms Immunologic: Reports: No Symptoms L&D Exam - Exam Exam: See Below - Vital Signs Weight: 90.718 kg - OB Specific Contraction Intensity: Mild Presentation: Vertex - Jessica Score Jessica Score Cervix Position: Midposition Jessica Score Consistency: Firm Jessica Score Effacement: 0-30% - Exam General: Alert, Oriented HEENT: PERRLA, Conjunctiva Clear, EACs Clear, EOMI, Hearing Intact, Mucosa Moist & [place], Nares Patent, Normal Nasal Septum, Posterior Pharynx Clear, TMs Clear Neck: Supple, Trachea Midline Lungs: Clear to Auscultation, Normal Respiratory Effort Cardiovascular: Regular Rate, Regular Rhythm GI/Abdominal Exam: Normal Bowel Sounds, Soft, Non-Tender, No Organomegaly, No Distention, No Abnormal Bruit, No Mass, Pelvis Stable Rectal Exam: Normal Exam, Normal Rectal Tone Genitourinary: Normal external exam, Normal bimanual exam, Normal speculum exam Back Exam: Normal Inspection, Full Range of Motion Extremities: Normal Inspection, Normal Range of Motion, Non-Tender, No Pedal Edema, Normal Capillary Refill Skin: Warm, Dry, Intact Neurological: Cranial Nerves Intact, Reflexes Equal Bilateral Psychiatric: Alert, Normal Affect, Normal Mood Problem List Initiated/Reviewed/Updated: Yes Orders Last 24hrs: Active Orders 24 hr Category Date Time Status Patient Status [ADT] Routine ADT 01/12/20 10:21 Active Non Stress Test [RC] PER UNIT ROUTINE Care 01/12/20 10:21 Active Notify Provider Vital Signs [RC] PRN Care 01/12/20 10:23 Active Procedure Site Prep Instruct [RC] ASDIRECTED Care 01/12/20 10:21 Active Up ad Katherine [RC] ASDIRECTED Care 01/12/20 10:21 Active Verify Patient Consent Obtain [RC] ASDIRECTED Care 01/12/20 10:21 Active Vital Signs [RC] PER UNIT ROUTINE Care 01/12/20 10:21 Active CBC W/O DIFF,HEMOGRAM [HEME] Routine Lab 01/12/20 10:21 Ordered RPR (SYPHILIS SERO) W/ RFLX [REF] Routine Lab 01/12/20 10:21 Ordered TYPE AND SCREEN [BBK] Routine Lab 01/12/20 10:21 Ordered Lactated Ringers [Ringers, Lactated] 1,000 ml Med 01/12/20 10:30 Active IV BOLUS Oxytocin/0.9 % Sodium Chloride [Oxytocin 30 Unit/500 ML Med 01/12/20 10:30 Active -NS] 30 unit in 500 ml IV TITRATE Sodium Chloride 0.9% [Normal Saline] Med 01/12/20 10:21 Active 10 ml IV ASDIRECTED PRN Sodium Chloride 0.9% [Saline Flush] Med 01/12/20 10:21 Active 10 ml FLUSH ASDIRECTED PRN Sodium Chloride 0.9% [Saline Flush] Med 01/12/20 10:21 Active 2.5 ml FLUSH ASDIRECTED PRN ceFAZolin [Ancef] 2 gm Med 01/12/20 10:21 Active Premix Bag 1 bag IV ONETIME Peripheral IV Insertion Adult [OM.PC] Routine Oth 01/12/20 10:21 Ordered Schedule Procedure [COMM] Per Unit Routine Oth 01/12/20 10:21 Ordered Resuscitation Status Routine Resus Stat 01/12/20 10:21 Ordered Medication Orders Oxytocin/Sodium Chloride (Oxytocin 30 Unit/500 Ml-Ns) 30 unit in 500 mls @ 250 mls/hr IV TITRATE [facility] Cefazolin Sodium/Dextrose 2 gm (/ Premix) 50 mls @ 100 mls/hr IV ONETIME ONE Stop: 01/12/20 10:50 Lactated Ringer's (Ringers, Lactated) 1,000 mls @ 500 mls/hr IV BOLUS [facility] Sodium Chloride (Saline Flush) 10 ml FLUSH ASDIRECTED PRN PRN Reason: Keep Vein Open Sodium Chloride (Saline Flush) 2.5 ml FLUSH ASDIRECTED PRN PRN Reason: Keep Vein Open Sodium Chloride (Normal Saline) 10 ml IV ASDIRECTED PRN PRN Reason: IV Use Assessment/Plan Comment:: 24 years old the Pro[place] 00 for all of them deliver by section she is admitted for elective repeat section is her fifth one. The patient have no a shoe however she is tested positive for covid 19 screening in the OR and OB personnel aware of the results we will invoke the previously agreed upon precaution for her management
[2020-01-12] MEDS ORDERED: Octyl 2-Cyanoacrylate 1 Tube ONE (11:22)
[2020-01-12] MEDS ORDERED: ceFAZolin/Dextrose,Iso-Osmotic 2 GM/50 ML Duplex Bag IV ONE (11:27)
[2020-01-12] MEDS: Lactated Ringers 1,000 ML IV SCH ×2 (11:30→12:03)
[2020-01-12] MEDS ORDERED: Lanolin 100% Cream 7 GM Tube TOP PRN (14:08)
[2020-01-12] MEDS ORDERED: Acetaminophen/oxyCODONE 325-5 MG Tab PO PRN ×2 (14:08)
[2020-01-12] MEDS ORDERED: Tranexamic Acid 1,000 MG in Sodium Chloride 0.9% 100 ML IV PRN (14:08)
[2020-01-12] MEDS ORDERED: Ondansetron 4 MG/2 ML SDV IVPUSH PRN (14:08)
[2020-01-12] MEDS ORDERED: Bisacodyl 10 MG Supp RECTAL PRN (14:08)
[2020-01-12] MEDS ORDERED: Methylergonovine 0.2 MG/1 ML Amp IM PRN (14:08)
[2020-01-12] MEDS ORDERED: Misoprostol 200 MCG Tab RECTAL PRN (14:08)
[2020-01-12] MEDS ORDERED: Oxytocin 10 Units/1 ML SDV IM PRN (14:08)
[2020-01-12] MEDS ORDERED: diphenhydrAMINE 50 MG/ML SDV IVPUSH PRN (14:08)
[2020-01-12] MEDS ORDERED: Ketorolac 30 MG/ML SDV IVPUSH SCH (14:15)
[2020-01-12] MEDS ORDERED: Lactated Ringers 1,000 ML IV SCH (14:15)
--- NOTE | 2020-01-12 14:15 | PCM.OPNOTE ---
- General Post-Op/Procedure Note Date of Surgery/Procedure: 01/12/20 Operative Procedure(s): Repeat C-secion Pre Op Diagnosis: Term , previous x4 Post-Op Diagnosis: Same Anesthesia Technique: Spinal Primary Surgeon: Tigist Iglesias Secondary Surgeon: Max Felton EBL in mLs: 700 Complications: None Condition: Good
--- NOTE | 2020-01-12 14:29 | PCM.POSTAN ---
POST ANESTHESIA ASSESSMENT - MENTAL STATUS Mental Status: Alert, Oriented - RESPIRATORY Respiratory Status: Respiratory Rate WNL, Airway Patent, O2 Saturation Stable - CARDIOVASCULAR CV Status: Pulse Rate WNL, Blood Pressure Stable - GASTROINTESTINAL GI Status: No Symptoms Free Text/Narrative:: Denies nausea - PAIN Pain Score: 0 (Denies pain at this time) - POST OP HYDRATION Hydration Status: Adequate & Stable - OBSERVATIONS Free Text/Narrative:: Spinal dermatome level regressing, currently L1.
[2020-01-12] MEDS: Ketorolac 30 MG/ML SDV IVPUSH SCH (19:48)
[2020-01-13] MEDS: Ketorolac 30 MG/ML SDV IVPUSH SCH ×3 (01:45→18:00)
[2020-01-13] MEDS: Docusate Sodium 100 MG Cap PO SCH ×2 (08:14→20:03)
--- NOTE | 2020-01-13 08:56 | PCM.PNPP ---
- General Info Date of Service: 01/13/20 Subjective Update: Patient is doing well. Was up to the bathroom, denies dizziness or lightheadedness Passing flatus. eating without nausea or vomiting Gee catheter just removed Functional Status: Reports: Pain Controlled - Review of Systems General: Reports: No Symptoms HEENT: Reports: No Symptoms Pulmonary: Reports: No Symptoms Cardiovascular: Reports: No Symptoms Gastrointestinal: Reports: No Symptoms Genitourinary: Reports: No Symptoms Musculoskeletal: Reports: No Symptoms Skin: Reports: No Symptoms Neurological: Reports: No Symptoms Psychiatric: Reports: No Symptoms - General Info Date of Service: 01/13/20 - Patient Data Vital Signs - Most Recent: Last Vital Signs Temp 98.2 F 01/13/20 04:00 Pulse 76 01/13/20 06:47 Resp 15 01/13/20 06:47 BP 112/48 L 01/13/20 06:47 Pulse Ox 99 01/13/20 06:47 Weight - Most Recent: 95.254 kg I&O - Last 24 Hours: Intake & Output 01/12/20 01/13/20 01/13/20 22:59 06:59 14:59 Output Total 75 550 Balance -75 -550 Lab Results - Last 24 Hours: Laboratory Results - last 24 hr 01/12/20 01/12/20 01/13/20 Range/Units 11:49 11:49 06:15 WBC 8.45 (4.0-11.0) K/uL RBC 4.25 L (4.30-5.90) M/uL Hgb 10.5 L 7.6 L (12.0-16.0) g/dL Hct 33.8 L 24.5 L (36.0-46.0) % MCV 79.5 L (80.0-98.0) fL MCH 24.7 L (27.0-32.0) pg MCHC 31.1 (31.0-37.0) g/dL RDW Std Deviation 43.2 (28.0-62.0) fl RDW Coeff of Fozia 15 (11.0-15.0) % Plt Count 175 (150-400) K/uL MPV 11.90 (7.40-12.00) fL Nucleated RBC % 0.0 /100WBC Nucleated RBCs # 0 K/uL Blood Type O POSITIVE Antibody Screen NEGATIVE Med Orders - Current: Current Medications Bisacodyl (Dulcolax) 10 mg RECTAL ONETIME PRN PRN Reason: Constipation Diphenhydramine HCl (Benadryl) 25 mg IVPUSH Q6H PRN PRN Reason: Itching or Nausea Docusate Sodium (Colace) 100 mg PO BID [facility] Last Admin: 01/13/20 08:14 Dose: 100 mg Documented by: Emollient Ointment (Lansinoh Hpa) 0 gm TOP ASDIRECTED PRN PRN Reason: Sore Nipples Oxytocin/Sodium Chloride (Oxytocin 30 Unit/500 Ml-Ns) 30 unit in 500 mls @ 250 mls/hr IV TITRATE [facility] Lactated Ringer's (Ringers, Lactated) 1,000 mls @ 500 mls/hr IV BOLUS [facility] Last Admin: 01/12/20 12:03 Dose: 500 mls/hr Documented by: Lactated Ringer's (Ringers, Lactated) 1,000 mls @ 125 mls/hr IV ASDIRECTED [facility] Last Admin: 01/12/20 16:26 Dose: 125 mls/hr Documented by: Tranexamic Acid 1,000 mg/ (Sodium Chloride) 110 mls @ 660 mls/hr IV ONETIME PRN PRN Reason: Bleeding Ibuprofen (Motrin) 800 mg PO Q8H PRN PRN Reason: mild pain or fever Ketorolac Tromethamine (Toradol) 30 mg IVPUSH Q6H [facility] Stop: 01/13/20 19:31 Last Admin: 01/13/20 08:15 Dose: 30 mg Documented by: Methylergonovine Maleate (Methergine) 0.2 mg IM ONETIME PRN PRN Reason: Excessive Vaginal Bleeding Misoprostol (Cytotec) 1,000 mcg RECTAL ONETIME PRN PRN Reason: excessive bleeding Ondansetron HCl (Zofran) 4 mg IVPUSH Q4H PRN PRN Reason: Nausea/Vomiting Oxycodone/Acetaminophen (Percocet 325-5 Mg) 1 tab PO Q4H PRN PRN Reason: Pain (moderate 4-6) Oxycodone/Acetaminophen (Percocet 325-5 Mg) 2 tab PO Q4H PRN PRN Reason: Pain (moderate 4-6) Oxytocin (Pitocin) 10 unit IM ASDIRECTED PRN PRN Reason: Excessive Vaginal Bleeding Sodium Chloride (Saline Flush) 10 ml FLUSH ASDIRECTED PRN PRN Reason: Keep Vein Open Sodium Chloride (Saline Flush) 2.5 ml FLUSH ASDIRECTED PRN PRN Reason: Keep Vein Open Sodium Chloride (Normal Saline) 10 ml IV ASDIRECTED PRN PRN Reason: IV Use Discontinued Medications Cefazolin Sodium/Dextrose (Ancef) Confirm Administered Dose 2 gm IV .STK-MED ONE Stop: 01/12/20 11:28 Citric Acid/Sodium Citrate (Bicitra Solution) 30 ml PO ONETIME ONE Stop: 01/12/20 10:22 Last Admin: 01/12/20 12:01 Dose: 15 ml Documented by: Dexamethasone (Dexamethasone) Confirm Administered Dose 20 mg .ROUTE .STK-MED ONE Stop: 01/12/20 10:24 Fentanyl (Sublimaze) Confirm Administered Dose 100 mcg .ROUTE .STK-MED ONE Stop: 01/12/20 10:22 Cefazolin Sodium/Dextrose 2 gm (/ Premix) 50 mls @ 100 mls/hr IV ONETIME ONE Stop: 01/12/20 10:50 Ketorolac Tromethamine (Toradol) Confirm Administered Dose 30 mg .ROUTE .STK-MED ONE Stop: 01/12/20 10:23 Ketorolac Tromethamine (Toradol) 30 mg IVPUSH Q6H [facility] Stop: 01/13/20 14:16 Last Admin: 01/12/20 16:27 Dose: Not Given Documented by: Morphine Sulfate (Duramorph Pf) Confirm Administered Dose 10 mg .ROUTE .STK-MED ONE Stop: 01/12/20 10:22 Octyl Cyanoacrylate (Dermabond Advance) Confirm Administered Dose 1 applic .ROUTE .STK-MED ONE Stop: 01/12/20 11:23 Ondansetron HCl (Zofran) Confirm Administered Dose 4 mg .ROUTE .STK-MED ONE Stop: 01/12/20 10:23 Oxytocin (Pitocin) Confirm Administered Dose 20 unit .ROUTE .STK-MED ONE Stop: 01/12/20 10:23 Oxytocin (Pitocin) Confirm Administered Dose 10 unit .ROUTE .STK-MED ONE Stop: 01/12/20 13:29 - Interaction Infant Disposition, : [place] in Room with Family Support Person: - Recovery Exam Fundal Tone: Firm Fundal Level: At Umbilicus Fundal Placement: Midline Lochia Amount: Scant, Small Lochia Color: Rubra/Red Perineum Description: Intact, Minimal Bruising/Swelling Episiotomy/Laceration: None Bladder Status: Indwelling Catheter in Place Urinary Elimination: Indwelling Catheter, Other (see below) Other Urinary Elimination, : Catheter just removed - Exam General: Alert, Oriented HEENT: Pupils Equal Neck: Supple Lungs: Clear to Auscultation, Normal Respiratory Effort Cardiovascular: Regular Rate, Regular Rhythm GI/Abdominal Exam: Normal Bowel Sounds, Soft, Non-Tender, No Organomegaly, No Distention, No Abnormal Bruit, No Mass, Pelvis Stable, Other (Incision clean and dry. healing well ) Extremities: Normal Inspection, Normal Range of Motion, Non-Tender, No Pedal Edema, Normal Capillary Refill Skin: Warm, Dry, Intact Wound/Incisions: Healing Well Neurological: No New Focal Deficit Psy/Mental Status: Alert, Normal Affect, Normal Mood - Problem List & Annotations (1) Anemia in preg-unspec SNOMED Code(s): 40650541 Code(s): O99.019 - ANEMIA COMPLICATING , UNSPECIFIED TRIMESTER Status: Chronic Priority: Medium Current Visit: Yes Qualifiers: Trimester: unspecified trimester Qualified Code(s): O99.019 - Anemia complicating , unspecified trimester (2) delivery, delivered, current hospitalization SNOMED Code(s): 252619687 Code(s): O82 - ENCOUNTER FOR DELIVERY WITHOUT INDICATION Status: Acute Priority: Medium Current Visit: No (3) Lab test positive for detection of COVID-19 virus SNOMED Code(s): 3991227378631486 Code(s): U07.1 - COVID-19 Status: Acute Priority: High Current Visit: Yes Annotation/Comment:: Patient asymptomatic Appropriate PPE in placed and performed - Problem List Review Problem List Initiated/Reviewed/Updated: Yes - Assessment Assessment:: POD#1: Patient doing well Covid positive, but remains asymptomatic Anemia, patient asymptomatic Will start iron - Plan Plan:: 24 years old the [place] 00 for all of them deliver by section she is admitted for elective repeat section is her fifth one. The patient have no a shoe however she is tested positive for covid 19 screening in the OR and OB personnel aware of the results we will invoke the previously agreed upon precaution for her management 01/13/20: Continue care Start oral iron and vitamin C Continue Protocol for covid positive patient. Plan to discharge tomorrow if patient continue to improve.
--- NOTE | 2020-01-13 09:08 | PCM48HPAN ---
Post Anesthesia Note - EVALUATION WITHIN 48HRS OF ANESTHETIC Vital Signs in Normal Range: Yes Patient Participated in Evaluation: Yes Respiratory Function Stable: Yes Airway Patent: Yes Cardiovascular Function Stable: Yes Hydration Status Stable: Yes Pain Control Satisfactory: Yes (Patient denies pain at this time, reports good pain control) Nausea and Vomiting Control Satisfactory: Yes (Denies nausea, taking PO well) Mental Status Recovered: Yes Vital Signs: Last Vital Signs Temp 36.9 C 01/13/20 08:20 Pulse 87 01/13/20 08:20 Resp 17 01/13/20 08:20 BP 114/68 01/13/20 08:20 Pulse Ox 98 01/13/20 08:20 - COMMENTS/OBSERVATIONS Free Text/Narrative:: Ambulated to bathroom without difficulty, reports full return of strength and sensation in BLE.
[2020-01-13] MEDS: Ibuprofen 800 MG Tab PO PRN (20:02)
[2020-01-14] MEDS: Ibuprofen 800 MG Tab PO PRN (05:12)
[2020-01-14] MEDS: Docusate Sodium 100 MG Cap PO SCH (09:19)
--- NOTE | 2020-01-14 11:27 | PCM.DCSUM1 ---
Discharge Summary - Hospital Course Free Text/Narrative:: 24yo G5 now P5 S/P RLTCS. complicated by Covid + (asymtomatic) and prior C-sectionx3 course unremarkable thus far, except for anemia (hgb 7.1) patient asymtomatic. Brief History: 24yo G5 now P5 S/P RLTCS. complicated by Covid + (asymtomatic) and prior C-sectionx3. course unremarkable thus far, except for anemia (hgb 7.1) patient asymtomatic. Diagnosis: Stroke: No Modified Madison Scale: No Signif.Disability Despite Sympt.Able to Carry Out Usual Act./Duties Modified Madison Scale Score: 1 - Discharge Data Discharge Date: 01/14/20 Discharge Disposition: Home, Self-Care 01 Condition: Good - Referral to Home Health Primary Care Physician: PCP None - Discharge Diagnosis/Problem(s) (1) Anemia in preg-unspec SNOMED Code(s): 25928632 ICD Code: O99.019 - ANEMIA COMPLICATING , UNSPECIFIED TRIMESTER Status: Chronic Priority: Medium Current Visit: Yes Qualifiers: Trimester: unspecified trimester Qualified Code(s): O99.019 - Anemia complicating , unspecified trimester (2) delivery, delivered, current hospitalization SNOMED Code(s): 472120632 ICD Code: O82 - ENCOUNTER FOR DELIVERY WITHOUT INDICATION Status: Acute Priority: Medium Current Visit: No (3) Lab test positive for detection of COVID-19 virus SNOMED Code(s): 0951665525413416 ICD Code: U07.1 - COVID-19 Status: Acute Priority: High Current Visit: Yes Problem Details: Patient asymptomatic Appropriate PPE in placed and performed - Patient Summary/Data Operative Procedure(s) Performed: Repeat C-secion - Discharge Plan *PRESCRIPTION DRUG MONITORING PROGRAM REVIEWED*: No *COPY OF PRESCRIPTION DRUG MONITORING REPORT IN PATIENT YAMILE: Not Applicable Prescriptions/Med Rec: Docusate Sodium [Colace] 100 mg PO BID #30 cap Ibuprofen [Motrin] 800 mg PO Q8H PRN #60 tablet PRN Reason: mild pain or fever Home Medications: Home Meds PNV95/Ferrous Fumarate/FA [ Multivitamins] 1 tab PO DAILY 08/21/14 [History] Ascorbate Calcium [Vitamin C] 1 dose PO DAILY 01/08/20 [History] Cholecalciferol (Vitamin D3) [Vitamin D3] 1 dose PO DAILY 01/08/20 [History] Docusate Sodium [Colace] 100 mg PO BID #30 cap 01/14/20 [Rx] Ibuprofen [Motrin] 800 mg PO Q8H PRN #60 tablet 01/14/20 [Rx] - Discharge Summary/Plan Comment DC Time >30 min.: No - General Info Date of Service: 01/14/20 Admission Dx/Problem (Free Text: Term History of prior x3 Covid + (asymptomatic) Subjective Update: 24yo G5 now P5 S/P RLTCS. complicated by Covid + (asymtomatic) and prior C-sectionx3 course unremarkable thus far, except for anemia (hgb 7.1) patient asymtomatic. Functional Status: Reports: Pain Controlled - Review of Systems General: Reports: No Symptoms HEENT: Reports: No Symptoms Pulmonary: Reports: No Symptoms Cardiovascular: Reports: No Symptoms Gastrointestinal: Reports: No Symptoms Genitourinary: Reports: No Symptoms Musculoskeletal: Reports: No Symptoms Skin: Reports: No Symptoms Neurological: Reports: No Symptoms Psychiatric: Reports: No Symptoms - Patient Data Vitals - Most Recent: Last Vital Signs Temp 97.6 F 01/13/20 20:00 Pulse 88 01/13/20 20:00 Resp 17 01/13/20 20:00 BP 126/68 01/13/20 20:00 Pulse Ox 100 01/13/20 20:00 Weight - Most Recent: 95.254 kg Med Orders - Current: Current Medications Bisacodyl (Dulcolax) 10 mg RECTAL ONETIME PRN PRN Reason: Constipation Diphenhydramine HCl (Benadryl) 25 mg IVPUSH Q6H PRN PRN Reason: Itching or Nausea Docusate Sodium (Colace) 100 mg PO BID [facility] Last Admin: 01/14/20 09:19 Dose: 100 mg Documented by: Emollient Ointment (Lansinoh Hpa) 0 gm TOP ASDIRECTED PRN PRN Reason: Sore Nipples Oxytocin/Sodium Chloride (Oxytocin 30 Unit/500 Ml-Ns) 30 unit in 500 mls @ 250 mls/hr IV TITRATE [facility] Lactated Ringer's (Ringers, Lactated) 1,000 mls @ 500 mls/hr IV BOLUS [facility] Last Admin: 01/12/20 12:03 Dose: 500 mls/hr Documented by: Lactated Ringer's (Ringers, Lactated) 1,000 mls @ 125 mls/hr IV ASDIRECTED [facility] Last Admin: 01/12/20 16:26 Dose: 125 mls/hr Documented by: Tranexamic Acid 1,000 mg/ (Sodium Chloride) 110 mls @ 660 mls/hr IV ONETIME PRN PRN Reason: Bleeding Ibuprofen (Motrin) 800 mg PO Q8H PRN PRN Reason: mild pain or fever Last Admin: 01/14/20 05:12 Dose: 800 mg Documented by: Methylergonovine Maleate (Methergine) 0.2 mg IM ONETIME PRN PRN Reason: Excessive Vaginal Bleeding Misoprostol (Cytotec) 1,000 mcg RECTAL ONETIME PRN PRN Reason: excessive bleeding Non-Formulary Medication (Ascorbate Calcium [Vitamin C]) 1 dose PO DAILY [facility] Non-Formulary Medication (Cholecalciferol (Vitamin D3) [Vitamin D3]) 1 dose PO DAILY [facility] Non-Formulary Medication (Pnv95/Ferrous Fumarate/Fa [ Multivitamins]) 1 tab PO DAILY [facility] Ondansetron HCl (Zofran) 4 mg IVPUSH Q4H PRN PRN Reason: Nausea/Vomiting Oxycodone/Acetaminophen (Percocet 325-5 Mg) 1 tab PO Q4H PRN PRN Reason: Pain (moderate 4-6) Oxycodone/Acetaminophen (Percocet 325-5 Mg) 2 tab PO Q4H PRN PRN Reason: Pain (moderate 4-6) Last Admin: 01/14/20 09:19 Dose: 2 tab Documented by: Oxytocin (Pitocin) 10 unit IM ASDIRECTED PRN PRN Reason: Excessive Vaginal Bleeding Sodium Chloride (Saline Flush) 10 ml FLUSH ASDIRECTED PRN PRN Reason: Keep Vein Open Sodium Chloride (Saline Flush) 2.5 ml FLUSH ASDIRECTED PRN PRN Reason: Keep Vein Open Sodium Chloride (Normal Saline) 10 ml IV ASDIRECTED PRN PRN Reason: IV Use Discontinued Medications Cefazolin Sodium/Dextrose (Ancef) Confirm Administered Dose 2 gm IV .STK-MED ONE Stop: 01/12/20 11:28 Citric Acid/Sodium Citrate (Bicitra Solution) 30 ml PO ONETIME ONE Stop: 01/12/20 10:22 Last Admin: 01/12/20 12:01 Dose: 15 ml Documented by: Dexamethasone (Dexamethasone) Confirm Administered Dose 20 mg .ROUTE .STK-MED ONE Stop: 01/12/20 10:24 Fentanyl (Sublimaze) Confirm Administered Dose 100 mcg .ROUTE .STK-MED ONE Stop: 01/12/20 10:22 Cefazolin Sodium/Dextrose 2 gm (/ Premix) 50 mls @ 100 mls/hr IV ONETIME ONE Stop: 01/12/20 10:50 Last Admin: 01/13/20 09:12 Dose: Not Given Documented by: Ketorolac Tromethamine (Toradol) Confirm Administered Dose 30 mg .ROUTE .STK-MED ONE Stop: 01/12/20 10:23 Ketorolac Tromethamine (Toradol) 30 mg IVPUSH Q6H [facility] Stop: 01/13/20 14:16 Last Admin: 01/12/20 16:27 Dose: Not Given Documented by: Ketorolac Tromethamine (Toradol) 30 mg IVPUSH Q6H [facility] Stop: 01/13/20 19:31 Last Admin: 01/13/20 18:00 Dose: Not Given Documented by: Morphine Sulfate (Duramorph Pf) Confirm Administered Dose 10 mg .ROUTE .STK-MED ONE Stop: 01/12/20 10:22 Octyl Cyanoacrylate (Dermabond Advance) Confirm Administered Dose 0 applic .ROUTE .STK-MED ONE Stop: 01/12/20 11:23 Ondansetron HCl (Zofran) Confirm Administered Dose 4 mg .ROUTE .STK-MED ONE Stop: 01/12/20 10:23 Oxytocin (Pitocin) Confirm Administered Dose 20 unit .ROUTE .STK-MED ONE Stop: 01/12/20 10:23 Oxytocin (Pitocin) Confirm Administered Dose 10 unit .ROUTE .STK-MED ONE Stop: 01/12/20 13:29 - Exam General: Reports: Alert, Oriented Neck: Reports: Supple Lungs: Reports: Clear to Auscultation, Normal Respiratory Effort Cardiovascular: Reports: Regular Rate, Regular Rhythm GI/Abdominal Exam: Soft, Non-Tender, No Distention, Other (Fundus palpated below the umbilicus) (Female) Exam: Normal External Exam Extremities: Normal Inspection Skin: Reports: Warm, Intact Wound/Incisions: Reports: Healing Well, No Drainage Psy/Mental Status: Reports: Normal Affect, Normal Mood
[2020-01-14 14:17] VITALS: BP 131/78; PULSE 84
[2020-01-15] MEDS ORDERED: FERROUS FUMARATE PO SCH (09:00)
[2020-01-15] MEDS ORDERED: [UNRECOGNIZED DRUG - OTHER] PO SCH (09:00)
[2020-01-15] MEDS ORDERED: CHOLECALCIFEROL PO SCH (09:00)
[2020-01-15] MEDS ORDERED: ASCORBIC ACID PO SCH (09:00)
[2020-01-15] MEDS ORDERED: PNV95 PO SCH (09:00)
--- NOTE | 2020-01-15 11:42 | OR ---
SURGEON: Tigist Black MD DATE OF PROCEDURE: 01/12/2020 INDICATION FOR SURGERY: Term , prior x4. PREOPERATIVE DIAGNOSES: Repeat , term , prior . POSTOPERATIVE DIAGNOSES: Repeat , term , prior . OPERATION: Repeat . PRIMARY SURGEON: Tigist Black MD BRASS PLATER: Max Felton MD ANESTHESIA: Spinal. ESTIMATED BLOOD LOSS: 700 mL. SPECIMEN: None. DELIVERY DETAILS: Live baby girl female. weight 8 pounds 10 ounces with score one minute 8, five minutes 9. Placenta delivered spontaneous. MATERNAL DELIVERY COMPLICATIONS: None. COMPLICATIONS: None. TECHNIQUE: Ella Beaver was taken to the operating room. She was then transferred to the operating table and placed in the dorsal supine position with a leftward tilt. After adequate anesthesia was confirmed, she was prepped and draped in the usual sterile fashion. A time-out was completed with IV running and Gee catheter draining. A Pfannenstiel skin incision was made. The incision was carried down with a Bovie cautery through subcutaneous tissue to the underlying rectus fascia. The rectus fascia was incised in the midline and extended laterally sharply. The underlying rectus muscles were dissected off sharply and bluntly. The rectus muscles were then in the midline and parietal peritoneum was opened. A bladder blade and Junior retractor were placed. The lower uterine segment was identified in the surgical field. A bladder flap was made and the lower uterine segment was incised in a transverse fashion. The incision was extended laterally with cephalocaudal traction. The infant's vertex was delivered atraumatically followed by the remainder of the . The cord was clamped and cut and handed off to the pediatric staff. Blood was collected for possible cord gas. The placenta was delivered spontaneously. The uterus was cleared of clots and debris and the incision was reapproximated in a running locked stitch fashion utilizing 0 Vicryl. A second running stitch imbricating the first layer was performed utilizing another 0 Vicryl. Hemostasis was achieved. The gutter was cleared of all clots and debris. All operative sites were examined and noted to be hemostatic. The bladder blade and Junior were removed. The peritoneum was closed in a running stitch fashion utilizing 3-0 Vicryl. The rectus fascia was reapproximated with PDS in a running stitch fashion. Subcutaneous tissue was closed in a running stitch utilizing 3-0 Vicryl. Hemostasis was also assured. The skin was then closed with 4-0 Monocryl in a subcuticular fashion. All lap sponges, needle, and instrument count were correct x2 per the OR nursing staff. The patient was taken to the recovery room in a stable condition. The patient had received 2 g of Ancef prior to the procedure. RYAN ESPINAL /[id number]
== END 2020-01-14 12:55 | disposition home or self-care (01) | DRG 786 ==
LOC: MW.OB 10:15 → OBSVTOIN 10:21 → MW.OB 10:21
PROVIDERS: ADMIT Obstetrics & Gynecology; ATTEND Obstetrics & Gynecology
PROC: 10D00Z1 Extraction of Products of Conception, Low, Open Approach (ICD-10-PCS; principal; 2020-01-12)
DX: O34.211 Maternal care for low transverse scar from previous cesarean delivery (principal); U07.1 COVID-19; O98.52 Other viral diseases complicating childbirth; Z37.0 Single live birth; O99.02 Anemia complicating childbirth; D64.9 Anemia, unspecified; Z3A.38 38 weeks gestation of pregnancy
CPT/HCPCS: 36415; 51702; 59025; 85014; 85018; 85027; 86592; 86850; 86900; 86901; A9270-GY; J0690; J1100; J1885; J2270; J2405; J2590; J3010; J7120

== ENCOUNTER 2021-09-04 05:34 | Inpatient (IN) | payer OTHER ==
[2021-09-04] MEDS ORDERED: Sodium Chloride 0.9% 10 ML Syringe FLUSH PRN (06:42)
[2021-09-04] MEDS ORDERED: Citric Acid/Sodium Citrate Solution 30 ML Cup PO ONE (06:42)
[2021-09-04] MEDS ORDERED: ceFAZolin 2 GM in Premix Bag 1 BAG IV ONE (06:42)
[2021-09-04] MEDS ORDERED: Sodium Chloride 0.9% 2.5 ML Syringe FLUSH PRN (06:42)
[2021-09-04] MEDS ORDERED: Sodium Chloride 0.9% 20 ML SDV IV PRN (06:42)
[2021-09-04] MEDS: Lactated Ringers 1,000 ML IV SCH ×3 (06:45→09:33)
[2021-09-04] MEDS ORDERED: Oxytocin/0.9 % Sodium Chloride 30 UNIT/500 ML BAG IV SCH (06:45)
[2021-09-04] MEDS ORDERED: Ropivacaine/Ketorolac/Ketamine 100-15-30/50 ML Syringe INJECT ONE ×2 (07:00)
[2021-09-04] MEDS ORDERED: Lidocaine 2% 100 MG/5 ML Syringe ONE (07:15)
[2021-09-04] MEDS ORDERED: fentaNYL 100 MCG/2 ML SDV ONE (07:15)
[2021-09-04] MEDS ORDERED: ceFAZolin 1 GM Vial ONE ×2 (07:15)
[2021-09-04] MEDS ORDERED: Oxytocin 10 Units/1 ML SDV ONE ×3 (07:15)
[2021-09-04] MEDS ORDERED: Ondansetron 4 MG/2 ML SDV ONE (07:15)
[2021-09-04] MEDS ORDERED: Phenylephrine 1% 10 MG/ML SDV ONE ×2 (07:16→07:33)
[2021-09-04] MEDS ORDERED: Morphine PF 10 MG/10 ML SDV ONE (07:16)
[2021-09-04] MEDS ORDERED: Octyl 2-Cyanoacrylate 1 Tube ONE (07:17)
[2021-09-04] MEDS ORDERED: Dexamethasone 4 MG/ML 5 ML MDV ONE (07:17)
[2021-09-04] MEDS ORDERED: ePHEDrine 50 MG/ML SDV IVPUSH PRN (07:19)
[2021-09-04] MEDS ORDERED: HYDROmorphone 1 MG/ML Syringe IVPUSH PRN (07:19)
[2021-09-04] MEDS ORDERED: Albuterol 0.083% 2.5 MG/3 ML Neb Soln NEB PRN (07:19)
[2021-09-04] MEDS ORDERED: Morphine 2 MG/ML SYRINGE IVPUSH PRN (07:19)
[2021-09-04] MEDS ORDERED: fentaNYL 100 MCG/2 ML SDV IVPUSH PRN ×2 (07:19)
[2021-09-04] MEDS ORDERED: diphenhydrAMINE 50 MG/ML SDV IVPUSH PRN ×2 (07:19→08:51)
[2021-09-04] MEDS ORDERED: Acetaminophen/oxyCODONE 325-5 MG Tab PO PRN ×3 (07:19→08:51)
[2021-09-04] MEDS ORDERED: Ondansetron 4 MG/2 ML SDV IVPUSH PRN ×3 (07:19→08:51)
[2021-09-04] MEDS ORDERED: Metoclopramide 10 MG/2 ML SDV IVPUSH PRN (07:19)
[2021-09-04] MEDS ORDERED: Naloxone 0.4 MG/ML SDV IVPUSH PRN (07:19)
[2021-09-04] MEDS ORDERED: Misoprostol 200 MCG Tab RECTAL PRN (08:51)
[2021-09-04] MEDS ORDERED: Oxytocin 10 Units/1 ML SDV IM PRN (08:51)
[2021-09-04] MEDS ORDERED: Methylergonovine 0.2 MG/1 ML Amp IM PRN (08:51)
[2021-09-04] MEDS ORDERED: Bisacodyl 10 MG Supp RECTAL PRN (08:51)
[2021-09-04] MEDS ORDERED: Lanolin 100% Cream 7 GM Tube TOP PRN (08:51)
[2021-09-04] MEDS ORDERED: Tranexamic Acid 1,000 MG in Sodium Chloride 0.9% 100 ML IV PRN (08:51)
[2021-09-04] MEDS ORDERED: Lactated Ringers 1,000 ML IV SCH (09:00)
[2021-09-04] MEDS: Ketorolac 30 MG/ML SDV IVPUSH SCH ×3 (11:03→23:20)
[2021-09-04] MEDS ORDERED: Acetaminophen 1,000 MG in Premix Bag 1 BAG IV ONE (15:00)
[2021-09-04] MEDS: Docusate Sodium 100 MG Cap PO SCH (21:15)
[2021-09-05] MEDS: Ketorolac 30 MG/ML SDV IVPUSH SCH ×2 (05:31→11:35)
[2021-09-05] MEDS: Docusate Sodium 100 MG Cap PO SCH ×2 (09:42→20:37)
[2021-09-05] MEDS ORDERED: Ibuprofen 800 MG Tab PO PRN (15:00)
[2021-09-06] MEDS: Docusate Sodium 100 MG Cap PO SCH (11:22)
[2021-09-06 12:19] VITALS: BP 121/92; PULSE 98
== END 2021-09-06 15:15 | disposition home or self-care (01) | DRG 788 ==
LOC: MW.OB 05:34
PROVIDERS: ADMIT Obstetrics & Gynecology; ATTEND Obstetrics & Gynecology
PROC: 10D00Z1 Extraction of Products of Conception, Low, Open Approach (ICD-10-PCS; principal; 2021-09-04)
DX: O34.211 Maternal care for low transverse scar from previous cesarean delivery (principal); Z3A.00 Weeks of gestation of pregnancy not specified; Z37.0 Single live birth; Z87.891 Personal history of nicotine dependence
CPT/HCPCS: 36415; 59025; 85014; 85018; 85027; 86592; 86850; 86900; 86901; A9270-GY; J0131; J0690; J1100; J1885; J2274; J2370; J2405; J2590; J3010; J7120

== ENCOUNTER 2024-09-28 05:44 | Inpatient (IN) | payer BC ==
[2024-09-28] MEDS ORDERED: Sodium Chloride 0.9% 2.5 ML Syringe FLUSH PRN ×3 (06:28→08:39)
[2024-09-28] MEDS ORDERED: CEFAZOLIN IVPUSH ONE (06:28)
[2024-09-28] MEDS ORDERED: WATER FOR INJECTION IVPUSH ONE (06:28)
[2024-09-28] MEDS ORDERED: Ondansetron 4 MG/2 ML SDV IVPUSH PRN ×4 (06:28→08:39)
[2024-09-28] MEDS ORDERED: Sodium Chloride 0.9% 10 ML Syringe FLUSH PRN ×3 (06:28→08:39)
[2024-09-28] MEDS ORDERED: STERILE IVPUSH ONE (06:28)
[2024-09-28] MEDS ORDERED: Citric Acid/Sodium Citrate Solution 30 ML Cup PO ONE ×2 (06:28→06:35)
[2024-09-28] MEDS ORDERED: Oxytocin/0.9 % Sodium Chloride 30 UNIT/500 ML BAG IV SCH ×3 (06:30→08:45)
[2024-09-28] MEDS ORDERED: Lactated Ringers 1,000 ML IV SCH ×2 (06:30→06:45)
[2024-09-28] MEDS ORDERED: fentaNYL 100 MCG/2 ML SDV ONE (06:52)
[2024-09-28] MEDS ORDERED: Morphine PF 10 MG/10 ML SDV ONE (06:52)
[2024-09-28] MEDS ORDERED: dexmedeTOMIDine HCl 200 MCG/2 ML SDV ONE (06:53)
[2024-09-28] MEDS ORDERED: ePHEDrine 50 MG/ML SDV ONE ×2 (06:59)
[2024-09-28 07:03] LABS: MEAN PLATELET VOLUME 11.1 fL (9.4-12.3); NRBC ABSOLUTE 0.00 K/uL (0.00-0.02); NRBC PERCENT 0.0 /100WBC (0.0-0.2); PLATELET COUNT,PLT 189 K/uL (150-400); RED BLOOD CELL COUNT 4.14 M/uL (4.10-5.30); WHITE BLOOD CELL COUNT,WBC 10.41 K/uL (3.9-11.3)
[2024-09-28] MEDS ORDERED: Oxytocin 10 Units/1 ML SDV ONE (07:03)
[2024-09-28] MEDS ORDERED: Dexamethasone 4 MG/ML 5 ML MDV ONE (07:03)
[2024-09-28] MEDS ORDERED: Ropivacaine 0.5% 5 MG/ML 30 ML SDV ONE (07:04)
[2024-09-28] MEDS ORDERED: Calcium Chloride 10% 1 GM/10 ML Syringe ONE (07:15)
[2024-09-28 07:23] LABS: A/G RATIO 0.7 (0.9-1.6); ALANINE AMINOTRANSFERASE,ALT 20.0 IU/L (14-63); ASPARTATE AMNIOTRANSFERASE,AST 19.0 IU/L (15-37); BILIRUBIN TOTAL 0.4 mg/dL (0.2-1.0); BLOOD UREA NITROGEN,BUN 4.0 mg/dL (7.0-18.0); CARBON DIOXIDE,CO2 21.3 mmol/L (21.0-32.0); CHLORIDE,CL 102.0 mmol/L (98-107); CREATININE 0.4 mg/dL (0.6-1.0); EST CRCL DRUG DOSING (CG) 147.72 mL/min; GLUCOSE RANDOM 91.0 mg/dL (74-106); POTASSIUM,K 3.6 mmol/L (3.5-5.1); PROTEIN TOTAL,TP 7.1 g/dL (6.4-8.2); SODIUM,NA 137.0 mmol/L (136-145)
[2024-09-28] MEDS ORDERED: fentaNYL 50 MCG/ML SDV IVPUSH PRN (07:26)
[2024-09-28] MEDS ORDERED: Albuterol 0.083% 2.5 MG/3 ML Neb Soln NEB PRN (07:26)
[2024-09-28] MEDS ORDERED: Acetaminophen/oxyCODONE 325-5 MG Tab PO PRN (07:26)
[2024-09-28] MEDS ORDERED: Naloxone 0.4 MG/ML SDV IVPUSH PRN (07:26)
[2024-09-28] MEDS ORDERED: fentaNYL 100 MCG/2 ML SDV IVPUSH PRN (07:26)
[2024-09-28] MEDS ORDERED: diphenhydrAMINE 50 MG/ML SDV IVPUSH PRN (07:26)
[2024-09-28] MEDS ORDERED: Nalbuphine 10 MG/1 ML Vial IVPUSH PRN (07:26)
[2024-09-28 07:27] LABS: ESTIMATED GFR 136.0 mL/min (>60)
[2024-09-28 07:36] LABS: CREATININE,URINE RAND 55.7 mg/dL
[2024-09-28 07:39] LABS: PROTEIN,URINE RANDOM < 6.0 mg/dL (<11.9)
[2024-09-28] MEDS ORDERED: Measles, Mumps & Rubella Vaccine 0.5 ML SDV SUBCUT ONE (08:39)
[2024-09-28] MEDS ORDERED: Lanolin 100% Cream 7 GM Tube TOP PRN (08:39)
[2024-09-28] MEDS ORDERED: Carboprost Tromethamine 250 MCG/1 mL Vial IM PRN (08:39)
[2024-09-28 08:49] LABS: PH,UMBILICAL ARTERIAL 7.26 (7.18-7.38)
[2024-09-28 08:50] LABS: PH,UMBILICAL VENOUS 7.28 (7.25-7.45)
[2024-09-28] MEDS: Lactated Ringers 1,000 ML IV ONE (09:18)
[2024-09-28] MEDS: Ketorolac 30 MG/ML SDV IVPUSH SCH ×2 (12:27→18:53)
[2024-09-29] MEDS: Ketorolac 30 MG/ML SDV IVPUSH SCH (00:59)
[2024-09-29 06:21] LABS: BASOPHILS ABSOLUTE AUTO 0.02 K/uL (0.00-0.20); BASOPHILS PERCENT AUTO 0.1 % (0.0-1.0); EOSINOPHILS ABSOLUTE AUTO 0.04 K/uL (0.00-0.45); EOSINOPHILS PERCENT AUTO 0.2 % (0.0-6.0); IMMATURE GRAN ABSOLUTE AUTO 0.11 K/uL (0.00-0.05); IMMATURE GRAN PERCENT AUTO 0.7 % (0.0-0.4); LYMPHOCYTES ABSOLUTE AUTO 3.25 K/uL (1.00-4.80); LYMPHOCYTES PERCENT AUTO 19.7 % (24.0-44.0); MEAN PLATELET VOLUME 11.6 fL (9.4-12.3); MONOCYTES ABSOLUTE AUTO 1.29 K/uL (0.00-0.80); MONOCYTES PERCENT AUTO 7.8 % (0.0-8.0); NEUTROPHILS ABSOLUTE AUTO 11.81 K/uL (1.80-7.70); NEUTROPHILS PERCENT AUTO 71.5 % (41.0-71.0); NRBC ABSOLUTE 0.00 K/uL (0.00-0.02); NRBC PERCENT 0.0 /100WBC (0.0-0.2); PLATELET COUNT,PLT 165 K/uL (150-400); RED BLOOD CELL COUNT 3.32 M/uL (4.10-5.30); WHITE BLOOD CELL COUNT,WBC 16.52 K/uL (3.9-11.3)
[2024-09-29] MEDS: Sodium Ferric Gluconate Cmplex 125 MG in Sodium Chloride 0.9% 100 ML IV SCH (13:36)
[2024-09-30 16:24] VITALS: BP 127/74; PULSE 83
== END 2024-09-30 17:15 | disposition home or self-care (01) | DRG 540 ==
LOC: MW.OB 05:44
PROVIDERS: ADMIT Obstetrics & Gynecology; ATTEND Obstetrics & Gynecology Obstetrics
PROC: 10D00Z1 Extraction of Products of Conception, Low, Open Approach (ICD-10-PCS; principal; 2024-09-28 06:51)
DX: O42.013 Preterm premature rupture of membranes, onset of labor within 24 hours of rupture, third trimester (principal); O99.214 Obesity complicating childbirth; O60.14X0 Preterm labor third trimester with preterm delivery third trimester, not applicable or unspecified; O34.211 Maternal care for low transverse scar from previous cesarean delivery; O13.4 Gestational [pregnancy-induced] hypertension without significant proteinuria, complicating childbirth; E66.01 Morbid (severe) obesity due to excess calories; O90.81 Anemia of the puerperium; Z3A.36 36 weeks gestation of pregnancy; Z37.0 Single live birth
CPT/HCPCS: 36415; 80053; 82570; 82803; 84156; 85025; 85027; 86592; 86850; 86900; 86901; A9270-GY; J0456; J0690; J1100; J1885; J2274; J2371; J2590; J2795; J2916; J3010; J3490; J7120